=== PATIENT | male | born 1970 | race American Indian/Alaskan Native ===

== ENCOUNTER 2018-12-31 11:49 | Inpatient (IN) | payer OTHER, SELFPAY ==
[2018-12-31] MEDS ORDERED: NACL 0.9% 1000 ML 1,000 ML IV ONE ×2 (12:37→14:18)
[2018-12-31 12:47] LABS: Basophils % (Auto) 0.5 % (0.0-1.8); Eosinophils % (Auto) 0.1 % (0.0-4.3); Hematocrit 49.7 % (35.5-45.6); Hemoglobin 16.6 gm/dl (11.8-15.2); Lymphocytes # (Auto) 0.7 K/mm3 (1.2-5.4); Lymphocytes % (Auto) 6.9 % (13.4-35.0); Mean Corpuscular HGB Conc 34 % (32-34); Mean Corpuscular Volume 86 fl (84-94); Monocytes # (Auto) 0.6 K/mm3 (0.0-0.8); Monocytes % (Auto) 6.2 % (0.0-7.3); Platelet Count 169 K/mm3 (140-440); Red Blood Count 5.81 M/mm3 (3.65-5.03); Red Cell Distribution Width 13.5 % (13.2-15.2)
[2018-12-31 13:00] LABS: Alanine Aminotransferase 27 units/L (7-56); Albumin 4.2 g/dL (3.9-5); BUN/Creatinine Ratio 8; Blood Urea Nitrogen 8 mg/dL (9-20); Calcium 9.4 mg/dL (8.4-10.2); Hemolysis Index 61
--- NOTE | 2018-12-31 13:51 | Emergency Department Report ---
ED General Adult HPI - General Chief complaint: Abdominal Pain Stated complaint: ABD PAIN Time Seen by Provider: 12/31/18 12:08 Source: patient Mode of arrival: Stretcher Limitations: No Limitations - History of Present Illness Initial comments: Patient presents to the emergency department with a chief complaint of abdominal pain that started yesterday after taking the liver complaints. Patient describes the pain as crampy in nature and a 10 out of 10 in nature. Patient denies any diarrhea, nausea, vomiting. -: Sudden Location: abdomen Radiation: non-radiation Severity scale (0 -10): 10 Quality: other (cramping) Consistency: constant Improves with: none Worsens with: none Associated Symptoms: denies other symptoms Treatments Prior to Arrival: none - Related Data Allergies Allergy/AdvReac Type Severity Reaction Status Date / Time No Known Allergies Allergy Unverified 12/31/18 12:01 ED Review of Systems ROS: Stated complaint: ABD PAIN Other details as noted in HPI Comment: All other systems reviewed and negative Constitutional: denies: chills, fever Eyes: denies: eye pain, eye discharge, vision change ENT: denies: ear pain, throat pain Respiratory: denies: cough, shortness of breath, wheezing Cardiovascular: denies: chest pain, palpitations Endocrine: no symptoms reported Gastrointestinal: abdominal pain. denies: nausea, diarrhea Genitourinary: denies: urgency, dysuria Musculoskeletal: denies: back pain, joint swelling, arthralgia Skin: denies: rash, lesions Neurological: denies: headache, weakness, paresthesias Psychiatric: denies: anxiety, depression Hematological/Lymphatic: denies: easy bleeding, easy bruising ED Past Medical Hx - Past Medical History Previous Medical History?: No - Surgical History Past Surgical History?: No - Social History Smoking Status: Unknown if ever smoked Substance Use Type: None ED Physical Exam - General Limitations: No Limitations General appearance: alert, in no apparent distress - Head Head exam: Present: atraumatic, normocephalic - Eye Eye exam: Present: normal appearance, PERRL, EOMI - ENT ENT exam: Present: mucous membranes moist - Neck Neck exam: Present: normal inspection - Respiratory Respiratory exam: Present: normal lung sounds bilaterally. Absent: respiratory distress - Cardiovascular Cardiovascular Exam: Present: regular rate, normal rhythm. Absent: systolic murmur, diastolic murmur, rubs, gallop - GI/Abdominal GI/Abdominal exam: Present: soft, tenderness (diffusely tender to palpation but is more exquisitely tender in the right lower quadrant), normal bowel sounds. Absent: distended - Rectal Rectal exam: Present: deferred - Extremities Exam Extremities exam: Present: normal inspection - Back Exam Back exam: Present: normal inspection - Neurological Exam Neurological exam: Present: alert, oriented X3, CN II-XII intact. Absent: motor sensory deficit - Psychiatric Psychiatric exam: Present: normal affect, normal mood - Skin Skin exam: Present: warm, dry, intact, normal color. Absent: rash ED Course Vital Signs 12/31/18 12/31/18 11:57 12:10 Temperature 97.6 F Pulse Rate 76 Respiratory 18 18 Rate Blood Pressure 130/61 O2 Sat by Pulse 98 Oximetry ED Medical Decision Making - Lab Data Result diagrams: 12/31/18 12:23 12/31/18 12:23 Lab Results 12/31/18 12/31/18 12/31/18 Range/Units 12:23 12:23 12:23 WBC 10.2 (4.5-11.0) K/mm3 RBC 5.81 H (3.65-5.03) M/mm3 Hgb 16.6 H (11.8-15.2) gm/dl Hct 49.7 H (35.5-45.6) % MCV 86 (84-94) fl MCH 29 (28-32) pg MCHC 34 (32-34) % RDW 13.5 (13.2-15.2) % Plt Count 169 (140-440) K/mm3 Lymph % (Auto) 6.9 L (13.4-35.0) % [place] % (Auto) 6.2 (0.0-7.3) % Eos % (Auto) 0.1 (0.0-4.3) % Baso % (Auto) 0.5 (0.0-1.8) % Lymph # 0.7 L (1.2-5.4) K/mm3 [place] # 0.6 (0.0-0.8) K/mm3 Eos # 0.0 (0.0-0.4) K/mm3 Baso # 0.0 (0.0-0.1) K/mm3 Seg Neutrophils % 86.3 H (40.0-70.0) % Seg Neutrophils # 8.8 H (1.8-7.7) K/mm3 Sodium 137 (137-145) mmol/L Potassium 4.1 (3.6-5.0) mmol/L Chloride 98.3 (98-107) mmol/L Carbon Dioxide 22 (22-30) mmol/L Anion Gap 21 mmol/L BUN 8 L (9-20) mg/dL Creatinine 1.0 (0.8-1.5) mg/dL Estimated GFR > 60 ml/min BUN/Creatinine Ratio 8 % Glucose 149 H (75-100) mg/dL Calcium 9.4 (8.4-10.2) mg/dL Total Bilirubin 1.50 H (0.1-1.2) mg/dL AST 23 (5-40) units/L ALT 27 (7-56) units/L Alkaline Phosphatase 57 (35-129) units/L Total Protein 7.3 (6.3-8.2) g/dL Albumin 4.2 (3.9-5) g/dL Albumin/Globulin Ratio 1.4 % Lipase 10 L (13-60) units/L - Radiology Data Radiology results: report reviewed - Medical Decision Making Patient declined pain medication multiple times during his ED stay. Discussed results with the patient At 2:47 PM the patient requested something for pain Critical care attestation.: If time is entered above; I have spent that time in minutes in the direct care of this critically ill patient, excluding procedure time. ED Disposition Clinical Impression: Appendicitis Disposition: DC-09 OP ADMIT IP TO THIS HOSP Is pt being admited?: Yes Does the pt Need Aspirin: No Condition: Fair Referrals: LISA NIEVES MD [Primary Care Provider] - 3-5 Days
--- NOTE | 2018-12-31 14:14 | Cat Scan Report ---
EXAM: CT ABDOMEN PELVIS WO CON HISTORY: abdominal pain TECHNIQUE: Spiral axial CT images are obtained through the abdomen and pelvis without the administrat ion of intravenous contrast. Additional coronal and sagittal reformatted images are reconstructed. COMPARISON: None available. FINDINGS: GASTROINTESTINAL TRACT: Evidence for acute appendicitis, marked by a dilated (1.3 cm diameter), thick walled, fluid-filled appendix with extensive periappendiceal streaky inflammatory change and an appro ximately 6.5 mm intraluminal appendicoliths. Axial images 118-149; sagittal images 107-141; coronal i mages 78-91). There are up to 2.9 cm dilated fluid-filled small bowel loops within the central and lo wer abdomen and pelvis, with relatively collapsed and thickened (9.7 mm) small bowel loops in the rig ht lower quadrant/pelvis; DDX includes enteritis with focal ileus and partial distal SBO secondary to distal ileal infectious enteritis and thickening. No drainable fluid collection, free air, or absce ss formation seen. There are no stigmata of colitis or diverticulitis. GENITOURINARY SYSTEM: The kidneys are unremarkable. There is no ureteral calculus or stigmata of obst ructive uropathy. The urinary bladder is grossly unremarkable for a non-dedicated exam. CT ABDOMEN: The liver, spleen, pancreas, adrenal glands, gallbladder, aorta, and inferior vena cava a re within normal limits for a noncontrast CT scan. There is no intra-abdominal or retroperitoneal ly mphadenopathy, free fluid, or free air seen. No abdominal herniation is noted. CT PELVIS: The visualized bony structures are within normal limits. No pelvic sidewall or inguinal l ymphadenopathy is seen. No inguinal herniation is noted. No free fluid or free air is seen. LUNG BASES: The lung bases are clear. IMPRESSION: 1. Evidence for acute appendicitis, marked by a dilated (1.3 cm diameter), thickwalled, fluid-filled appendix with extensive periappendiceal streaky inflammatory change and an approximately 6.5 mm intr aluminal appendicoliths. Axial images 118-149; sagittal images 107-141; coronal images 78-91). 2. Up to 2.9 cm dilated fluid-filled small bowel loops within the central and lower abdomen and pelv is, with relatively collapsed and thickened (9.7 mm) small bowel loops in the right lower quadrant/pe lvis; DDX includes enteritis with focal ileus and partial distal SBO secondary to distal ileal infect ious enteritis and thickening. 3. No drainable fluid collection, free air, or abscess formation seen. 4. No evidence for colitis or diverticulitis seen. 5. No evidence for renal stone disease or obstructive uropathy. This document is electronically signed by Hussein Aems MD., December 31 2018 03:12:14 PM ET
[2018-12-31] MEDS ORDERED: MORPHINE IV ONE (14:48)
[2018-12-31] MEDS ORDERED: ZOFRAN IV ONE (14:48)
[2018-12-31] MEDS ORDERED: ZOSYN/NS 4.5GM/100ML 4.5 GM/100 ML VIAL IV ONE (15:12)
--- NOTE | 2018-12-31 15:44 | History and Physical Report ---
History of Present Illness Chief complaint: My stomach hurts History of present illness: 48 YO Male with no PMH presents to ED for evaluation. Pt states that he has experienced abdominal pain over the past 1 day with worsening symptoms over the past 8 hours. Pt states that pain in 10/10, constant, nonradiating, localized to the right side of his abdomen, without exacerbating or alleviating factors, not associated with meals. Pt reports that symptoms began after taking a "liver cleansing drink". EMS notified, and upon arrival the patietn was found to be in distress. Patient transported to [facility]. Pt seen and evaluated in ED and found to have abdominal pain. Pt underwent CT Abdomen/Pelvis which revealted Acute Appe ndicitis. Pt admitted to Surgical floor, and initiated on IV antibiotic therpay. Surgery team consulted in ED. Pt denies fever, chills, CP, Palpitations, NVD, skin rash, productive cough, or recent ill contacts. No prior admission for review. No medication listed for reconciliation at time of admission. Past History Past Medical History: No medical history, other (reviewed) Past Surgical History: No surgical history, Other (reviewed) Social history: single. denies: smoking, alcohol abuse, prescription drug abuse Family history: no significant family history (reviewed) Medications and Allergies Allergies Allergy/AdvReac Type Severity Reaction Status Date / Time No Known Allergies Allergy Unverified 12/31/18 12:01 Home Medications Medication Instructions Recorded Confirmed Last Taken Type No Known Home Medications [No 12/31/18 12/31/18 Unknown History Reported Home Medications] Review of Systems Constitutional: no weight loss, no weight gain, no fever, no chills Ears, nose, mouth and throat: no ear pain, no ear discharge, no tinnitis, no decreased hearing, no nose pain, no nasal congestion Cardiovascular: no chest pain, no orthopnea, no palpitations, no rapid/irregular heart beat, no shortness of breath Respiratory: no cough, no cough with sputum, no excessive sputum, no hemoptysis, no shortness of breath, no dyspnea on exertion Gastrointestinal: abdominal pain, no diarrhea, no constipation, no change in bowel habits, no hematemesis, no BRBPR, no melena, no loss of appetite Genitourinary Male: no hematuria, no flank pain, no discharge, no urinary frequency, no urinary hesitancy, no nocturia Rectal: no pain, no incontinence, no bleeding Musculoskeletal: no neck stiffness, no neck pain, no shooting arm pain, no arm numbness/tingling Integumentary: no rash, no pruritis, no redness, no wounds Neurological: no head injury, no transient paralysis, no paralysis, no weakness, no parathesias, no numbness, no tingling, no seizures, no syncope Psychiatric: no anxiety, no change in sleep habits, no sleep disturbances, no insomnia, no change in appetite, no change in libido, no suicidal ideation Endocrine: no cold intolerance, no heat intolerance, no polyphagia, no excessive thirst, no polydipsia, no polyuria, no nocturia, no excessive sweating Hematologic/Lymphatic: no easy bruising, no easy bleeding Allergic/Immunologic: no urticaria, no allergic rhinitis, no wheezing Exam - Constitutional Vitals: Temp Pulse Resp BP Pulse Ox 97.6 F 76 18 133/89 97 12/31/18 11:57 12/31/18 11:57 12/31/18 12:10 12/31/18 15:31 12/31/18 15:31 General appearance: Present: mild distress - EENT Eyes: Present: PERRL ENT: hearing intact, clear oral mucosa - Neck Neck: Present: supple, normal ROM - Respiratory Respiratory effort: normal Respiratory: bilateral: CTA - Cardiovascular Heart Sounds: Present: S1 & S2. Absent: rub, click - Extremities Extremities: pulses symmetrical, No edema Peripheral Pulses: within normal limits - Abdominal General gastrointestinal: Present: soft, tender, non-distended, normal bowel sounds. Absent: hepatomegaly, splenomegaly, mass Localized gastrointestinal: tender: RLQ Male genitourinary: Present: normal - Integumentary Integumentary: Present: clear, warm, dry - Musculoskeletal Musculoskeletal: gait normal, strength equal bilaterally - Psychiatric Psychiatric: appropriate mood/affect, intact judgment & insight - Neurologic Neurologic: CNII-XII intact, moves all extremities Results - Labs CBC & Chem 7: 12/31/18 12:23 12/31/18 12:23 Labs: Abnormal lab results 12/31/18 12/31/18 12/31/18 Range/Units 12:23 12:23 12:23 RBC 5.81 H (3.65-5.03) M/mm3 Hgb 16.6 H (11.8-15.2) gm/dl Hct 49.7 H (35.5-45.6) % Lymph % (Auto) 6.9 L (13.4-35.0) % Lymph # 0.7 L (1.2-5.4) K/mm3 Seg Neutrophils % 86.3 H (40.0-70.0) % Seg Neutrophils # 8.8 H (1.8-7.7) K/mm3 BUN 8 L (9-20) mg/dL Glucose 149 H (75-100) mg/dL Total Bilirubin 1.50 H (0.1-1.2) mg/dL Lipase 10 L (13-60) units/L Assessment and Plan - Patient Problems (1) Appendicitis Current Visit: Yes Status: Acute Qualifiers: Appendicitis type: acute appendicitis Plan to address problem: Admit to surgical floor, IV antibiotic therapy, serial abdominal exam, CT Abdomen/Pelvis, IVF resuscitation therapy, pain control, bowel rest, Surgery consulted in ED. (2) DVT prophylaxis Current Visit: Yes Status: Acute Plan to address problem: SCD to BLE while in bed, Prophylactic lovenox
[2018-12-31] MEDS ORDERED: SODIUM CHLORIDE FLUSH SYRINGE 10 ML IV PRN (15:45)
[2018-12-31] MEDS ORDERED: PROVENTIL IH PRN (15:45)
[2018-12-31] MEDS ORDERED: ZOFRAN IV PRN (15:45)
[2018-12-31] MEDS ORDERED: TYLENOL PO PRN (15:45)
[2018-12-31] MEDS ORDERED: MORPHINE IV PRN (15:45)
[2018-12-31 16:21] LABS: Bilirubin,Urine NEG (Negative); Blood,Urine NEG (Negative); Color,Urine Yellow (Yellow); Mucus,Urine 3+ /HPF
--- NOTE | 2018-12-31 17:00 | Event Note ---
Date: 12/31/[address] Michael. Reviewed chart and CT. Pain minimal at this time. Will admit to hospitalist for resuscitation. Added to tomorrow's OR schedule.
[2018-12-31] MEDS: NACL 0.9% 1000 ML 1,000 ML IV SCH (17:21)
[2018-12-31] MEDS: ZOSYN/NS 4.5GM/100ML 4.5 GM/100 ML VIAL IV SCH (21:58)
[2018-12-31] MEDS: SODIUM CHLORIDE FLUSH SYRINGE 10 ML IV SCH (22:01)
[2018-12-31] MEDS: LOVENOX SUB-Q SCH (22:01)
[2019-01-01] MEDS: NACL 0.9% 1000 ML 1,000 ML IV SCH (00:04)
[2019-01-01] MEDS: ZOSYN/NS 4.5GM/100ML 4.5 GM/100 ML VIAL IV SCH ×3 (06:03→21:23)
[2019-01-01] MEDS ORDERED: XYLOCAINE MPF 2% ONE (07:09)
[2019-01-01] MEDS ORDERED: DILAUDID ONE (07:09)
[2019-01-01] MEDS ORDERED: ZEMURON IV ONE (07:09)
[2019-01-01] MEDS ORDERED: DIPRIVAN 10 MG/ML IV ONE (07:10)
[2019-01-01] MEDS ORDERED: ZOFRAN IV PRN (07:16)
[2019-01-01] MEDS ORDERED: SUBLIMAZE IV PRN (07:16)
--- NOTE | 2019-01-01 07:38 | Anesthesia Day of Surgery ---
Anesthesia Day of Surgery - Day of Surgery Patient Examined: Yes Patient H&P Reviewed: Yes Patient is NPO: Yes
--- NOTE | 2019-01-01 07:42 | Anesthesia Consultation ---
Anesthesia Consult and Med Hx Date of service: 01/01/19 - Airway Anesthetic Teeth Evaluation: Good ROM Head & Neck: Adequate Mental/Hyoid Distance: Adequate Mallampati Class: Class III Intubation Access Assessment: Probably Good - Pre-Operative Health Status ASA Pre-Surgery Classification: ASA1, Emergency Proposed Anesthetic Plan: General - Pulmonary Hx Asthma: No Hx Pneumonia: No
[2019-01-01] MEDS ORDERED: XYLOCAINE 1% 20 mL ONE (07:44)
[2019-01-01] MEDS ORDERED: MARCAINE 0.25% INFILTRATI ONE ×2 (07:44→08:51)
[2019-01-01] MEDS ORDERED: NEURONTIN PO NR (08:00)
[2019-01-01] MEDS ORDERED: VERSED IV NR (08:00)
[2019-01-01] MEDS: LACTATED RINGERS 1,000 ML IV SCH ×2 (08:00→16:49)
[2019-01-01] MEDS ORDERED: TYLENOL PO NR (08:00)
[2019-01-01] MEDS ORDERED: TRANSDERM-SCOP TD NR (08:00)
[2019-01-01] MEDS: MORPHINE IV NR ×2 (08:01→08:22)
--- NOTE | 2019-01-01 08:11 | Consultation ---
History of Present Illness Consult date: 01/01/19 Reason for consult: abdominal pain Requesting physician: IVA CONLEY Chief complaint: abdominal pain - History of present illness History of present illness: 48yo M with acute onset of abdominal pain two night ago. Reports that it began in the epigastric area and then spread to the center. Entire abdomen hurts now. Last BM yesterday. +nausea and chills. No fevers. Pain was less last night but is increasing now. Never has this before. 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 denies: smoking, alcohol abuse, prescription drug abuse Family history: no significant family history (reviewed) Medications and Allergies Allergies Allergy/AdvReac Type Severity Reaction Status Date / Time No Known Allergies Allergy Unverified 12/31/18 12:01 Home Medications Medication Instructions Recorded Confirmed Last Taken Type No Known Home Medications [No 12/31/18 12/31/18 Unknown History Reported Home Medications] Active Meds: Active Medications Acetaminophen (Tylenol) 650 mg PO Q4H PRN PRN Reason: Pain MILD(1-3)/Fever >100.5/BLANCAS Acetaminophen (Tylenol) 650 mg PO PREOP NR Stop: 01/01/19 20:00 Albuterol (Proventil) 2.5 mg IH Q4HRT PRN PRN Reason: Shortness Of Breath Celecoxib (Celebrex) 200 mg PO PREOP NR Stop: 01/01/19 20:00 Enoxaparin Sodium (Lovenox) 40 mg SUB-Q QDAY@2200 CEDRICK Last Admin: 12/31/18 22:01 Dose: 40 mg Documented by: Fentanyl (Sublimaze) 50 mcg IV Q5MIN PRN PRN Reason: Pain , Severe (7-10) Stop: 01/01/19 20:00 Gabapentin (Neurontin) 300 mg PO PREOP NR Stop: 01/01/19 20:00 Piperacillin Sod/Tazobactam Sod (Zosyn/Ns 4.5gm/100ml) 4.5 gm in 100 mls @ 200 mls/hr IV Q8HR CEDRICK; Protocol Last Admin: 01/01/19 06:03 Dose: 200 mls/hr Documented by: Sodium Chloride (Nacl 0.9% 1000 Ml) 1,000 mls @ 150 mls/hr IV DIRECT CEDRICK Last Admin: 01/01/19 00:04 Dose: 150 mls/hr Documented by: Lactated Ringer's (Lactated Ringers) 1,000 mls @ 125 mls/hr IV DIRECT CEDRICK Midazolam HCl (Versed) 2 mg IV PREOP NR Stop: 01/01/19 23:59 Morphine Sulfate (Morphine) 2 mg IV Q4H PRN PRN Reason: Pain, Moderate (4-6) Stop: 01/01/19 13:00 Morphine Sulfate (Morphine) 2 mg IV ONCE NR Stop: 01/01/19 10:00 Ondansetron HCl (Zofran) 4 mg IV Q8H PRN PRN Reason: Nausea And Vomiting Ondansetron HCl (Zofran) 4 mg IV ONCE PRN PRN Reason: Nausea And Vomiting Stop: 01/01/19 20:00 Scopolamine (Transderm-Scop) 1 each TD PREOP NR Stop: 01/01/19 20:00 Sodium Chloride (Sodium Chloride Flush Syringe 10 Ml) 10 ml IV BID CEDRICK Last Admin: 12/31/18 22:01 Dose: 10 ml Documented by: Sodium Chloride (Sodium Chloride Flush Syringe 10 Ml) 10 ml IV PRN PRN PRN Reason: LINE FLUSH Review of Systems - Constitutional chills, no fever, no chronic pain - Cardiovascular no chest pain, no lightheadedness, no shortness of breath - Respiratory no cough, no dyspnea on exertion - Gastrointestinal abdominal pain, nausea, dyspepsia/bloating, no vomiting, no hematemesis, no coffee ground emesis, no BRBPR, no melena, no hematochezia - Genitourinary no dysuria - Muskuloskeletal no low back pain Exam Vital Signs Temp Pulse Resp BP Pulse Ox 97.6 F 76 18 130/61 98 12/31/18 11:57 12/31/18 11:57 12/31/18 11:57 12/31/18 11:57 12/31/18 11:57 - General physical appearance Positive: no distress, no pain, other (does not appear ill) - Eyes Positive: normal occular movement. Negative: pale, icteric - Respiratory Positive: normal expansion, normal respiratory effort, clear to auscultation - Cardiovascular Rhythm: regular - Abdomen Abdomen: Present: soft, tender (mild throughtout - moderate in RLQ), bowel sounds hypoactive (but present), distended. Absent: masses, rebound, guarding, rigid, wound, surgical scars - Integumentary no rash, no growths, no abnormal pigmentation - Neurologic Neurologic: alert and oriented to time, place and person, motor strength and sensation are grossly intact - Psychiatric Psychiatric: appropriate mood/affect, intact judgment & insight, cooperative Results - Labs 12/31/18 12:23 12/31/18 12:23 Abnormal lab results 12/31/18 12/31/18 12/31/18 Range/Units 12:23 12:23 12:23 RBC 5.81 H (3.65-5.03) M/mm3 Hgb 16.6 H (11.8-15.2) gm/dl Hct 49.7 H (35.5-45.6) % Lymph % (Auto) 6.9 L (13.4-35.0) % Lymph # 0.7 L (1.2-5.4) K/mm3 Seg Neutrophils % 86.3 H (40.0-70.0) % Seg Neutrophils # 8.8 H (1.8-7.7) K/mm3 BUN 8 L (9-20) mg/dL Glucose 149 H (75-100) mg/dL Total Bilirubin 1.50 H (0.1-1.2) mg/dL Lipase 10 L (13-60) units/L Diabetes panel 12/31/18 Range/Units 12:23 Sodium 137 (137-145) mmol/L Potassium 4.1 (3.6-5.0) mmol/L Chloride 98.3 (98-107) mmol/L Carbon Dioxide 22 (22-30) mmol/L BUN 8 L (9-20) mg/dL Creatinine 1.0 (0.8-1.5) mg/dL Glucose 149 H (75-100) mg/dL Calcium 9.4 (8.4-10.2) mg/dL AST 23 (5-40) units/L ALT 27 (7-56) units/L Alkaline Phosphatase 57 (35-129) units/L Total Protein 7.3 (6.3-8.2) g/dL Albumin 4.2 (3.9-5) g/dL Calcium panel 12/31/18 Range/Units 12:23 Calcium 9.4 (8.4-10.2) mg/dL Albumin 4.2 (3.9-5) g/dL Pituitary panel 12/31/18 Range/Units 12:23 Sodium 137 (137-145) mmol/L Potassium 4.1 (3.6-5.0) mmol/L Chloride 98.3 (98-107) mmol/L Carbon Dioxide 22 (22-30) mmol/L BUN 8 L (9-20) mg/dL Creatinine 1.0 (0.8-1.5) mg/dL Glucose 149 H (75-100) mg/dL Calcium 9.4 (8.4-10.2) mg/dL Adrenal panel 12/31/18 Range/Units 12:23 Sodium 137 (137-145) mmol/L Potassium 4.1 (3.6-5.0) mmol/L Chloride 98.3 (98-107) mmol/L Carbon Dioxide 22 (22-30) mmol/L BUN 8 L (9-20) mg/dL Creatinine 1.0 (0.8-1.5) mg/dL Glucose 149 H (75-100) mg/dL Calcium 9.4 (8.4-10.2) mg/dL Total Bilirubin 1.50 H (0.1-1.2) mg/dL AST 23 (5-40) units/L ALT 27 (7-56) units/L Alkaline Phosphatase 57 (35-129) units/L Total Protein 7.3 (6.3-8.2) g/dL Albumin 4.2 (3.9-5) g/dL - Imaging CT scan - abdomen: report reviewed, image reviewed CT scan - pelvis: report reviewed, image reviewed Assessment and Plan - Patient Problems (1) Appendicitis Current Visit: Yes Status: Acute Qualifiers: Appendicitis type: acute appendicitis Acute appendicitis type: with generalized peritonitis Appendicitis gangrene presence: unspecified whether gangrene present Appendicitis perforation presence: unspecified whether perforation present Appendicitis abscess presence: unspecified whether abscess present Qualified Code(s): K35.20 - Acute appendicitis with generalized peritonitis, without abscess Plan to address problem: Pt stable. Appears to have acute appendicitis, but Ct limited by no contrast. Will proceed with dx lap and probable appendectomy. Pt understands that we may have to open if there is some other problem or the appendicitis is very severe. Procedure, risks, benefits explained. all questions answered. Consent obtained. To OR today. Time=30min
[2019-01-01] MEDS ORDERED: XYLOCAINE 1% 20 mL INFILTRATI ONE (08:51)
[2019-01-01] MEDS ORDERED: NACL 0.9% IR ONE ×2 (08:53)
[2019-01-01] MEDS ORDERED: WATER FOR IRRIG STERILE IR ONE (08:54)
[2019-01-01] MEDS ORDERED: QUELICIN ONE (08:54)
[2019-01-01] MEDS ORDERED: DECADRON ONE (08:54)
[2019-01-01] MEDS: SODIUM CHLORIDE FLUSH SYRINGE 10 ML IV SCH (10:00)
[2019-01-01] MEDS ORDERED: ZOFRAN ONE (10:28)
[2019-01-01] MEDS ORDERED: TORADOL ONE (10:28)
--- NOTE | 2019-01-01 10:43 | Post Operative Note ---
Date of procedure: 01/01/19 (dictation:[id number]) Pre-op diagnosis: acute appendicitis Post-op diagnosis: other (acute perforated appendicitis with generalized peritonitis) Findings: enlarged, thickened, appendix with necrotic distal portion. purulent fluid in the abdomen. Procedure: Lap appy IVF 2L EBL min UOP 200cc (concentrated) Anesthesia: GETA Surgeon: CHELA HARRIS Estimated blood loss: minimal Pathology: list (appendix and mesoappendix) Specimen disposition: to lab Condition: stable Disposition: PACU
--- NOTE | 2019-01-01 11:39 | Progress Note ---
Assessment and Plan Assessment and plan: --Acute appendicitis; lap appendectomy Continue postop care, IV fluids, IV antibiotics Supportive care, surgery following --DVT prophylaxis; on Lovenox Hold Lovenox. Postop State History Interval history: Patient seen and examined medical records reviewed Admitted with acute appendicitis Schedule follow-up lap appendectomy Vital signs noted Hospitalist Physical - Constitutional Vitals: Temp Pulse Resp BP Pulse Ox 98.4 F 86 14 114/78 94 01/01/19 10:55 01/01/19 11:15 01/01/19 11:15 01/01/19 11:15 01/01/19 11:15 General appearance: Present: no acute distress, well-nourished - EENT Eyes: Present: PERRL, EOM intact - Neck Neck: Present: supple, normal ROM - Respiratory Respiratory effort: normal Respiratory: bilateral: diminished, negative: rales, rhonchi, wheezing - Cardiovascular Rhythm: regular Heart Sounds: Present: S1 & S2 - Extremities Extremities: no ischemia - Abdominal General gastrointestinal: soft, tender, non-distended, normal bowel sounds - Integumentary Integumentary: Present: clear, warm - Psychiatric Psychiatric: appropriate mood/affect, cooperative - Neurologic Neurologic: CNII-XII intact, moves all extremities Results - Labs CBC & Chem 7: 01/01/19 12:19 01/02/19 04:14 Labs: Laboratory Last Values WBC 10.2 K/mm3 (4.5-11.0) 12/31/18 12:23 RBC 5.81 M/mm3 (3.65-5.03) H 12/31/18 12:23 Hgb 16.6 gm/dl (11.8-15.2) H 12/31/18 12:23 Hct 49.7 % (35.5-45.6) H 12/31/18 12:23 MCV 86 fl (84-94) 12/31/18 12:23 MCH 29 pg (28-32) 12/31/18 12:23 MCHC 34 % (32-34) 12/31/18 12:23 RDW 13.5 % (13.2-15.2) 12/31/18 12:23 Plt Count 169 K/mm3 (140-440) 12/31/18 12:23 Lymph % (Auto) 6.9 % (13.4-35.0) L 12/31/18 12:23 [place] % (Auto) 6.2 % (0.0-7.3) 12/31/18 12:23 Eos % (Auto) 0.1 % (0.0-4.3) 12/31/18 12:23 Baso % (Auto) 0.5 % (0.0-1.8) 12/31/18 12:23 Lymph # 0.7 K/mm3 (1.2-5.4) L 12/31/18 12:23 [place] # 0.6 K/mm3 (0.0-0.8) 12/31/18 12:23 Eos # 0.0 K/mm3 (0.0-0.4) 12/31/18 12:23 Baso # 0.0 K/mm3 (0.0-0.1) 12/31/18 12:23 Seg Neutrophils % 86.3 % (40.0-70.0) H 12/31/18 12:23 Seg Neutrophils # 8.8 K/mm3 (1.8-7.7) H 12/31/18 12:23 Sodium 137 mmol/L (137-145) 12/31/18 12:23 Potassium 4.1 mmol/L (3.6-5.0) 12/31/18 12:23 Chloride 98.3 mmol/L (98-107) 12/31/18 12:23 Carbon Dioxide 22 mmol/L (22-30) 12/31/18 12:23 21 mmol/L 12/31/18 12:23 BUN 8 mg/dL (9-20) L 12/31/18 12:23 1.0 mg/dL (0.8-1.5) 12/31/18 12:23 Estimated GFR > 60 ml/min 12/31/18 12:23 8 % 12/31/18 12:23 Glucose 149 mg/dL (75-100) H 12/31/18 12:23 Calcium 9.4 mg/dL (8.4-10.2) 12/31/18 12:23 1.50 mg/dL (0.1-1.2) H 12/31/18 12:23 AST 23 units/L (5-40) 12/31/18 12:23 ALT 27 units/L (7-56) 12/31/18 12:23 57 units/L (35-129) 12/31/18 12:23 7.3 g/dL (6.3-8.2) 12/31/18 12:23 4.2 g/dL (3.9-5) 12/31/18 12:23 1.4 % 12/31/18 12:23 10 units/L (13-60) L 12/31/18 12:23 Yellow (Yellow) 12/31/18 15:46 Clear (Clear) 12/31/18 15:46 6.0 (5.0-7.0) 12/31/18 15:46 Ur Specific [place] 1.021 (1.003-1.030) 12/31/18 15:46 30 mg/dl mg/dL (Negative) 12/31/18 15:46 Neg mg/dL (Negative) 12/31/18 15:46 Tr mg/dL (Negative) 12/31/18 15:46 Neg (Negative) 12/31/18 15:46 Neg (Negative) 12/31/18 15:46 Neg (Negative) 12/31/18 15:46 2.0 mg/dL (<2.0) 12/31/18 15:46 Ur Leukocyte Esterase Neg (Negative) 12/31/18 15:46 1.0 /HPF (0.0-6.0) 12/31/18 15:46 3.0 /HPF (0.0-6.0) 12/31/18 15:46 U Epithel Cells (Auto) < 1.0 /HPF (0-13.0) 12/31/18 15:46 3+ /HPF 12/31/18 15:46 Active Medications - Current Medications Current Medications: Generic Name Dose Route Start Last Admin Trade Name Freq PRN Reason Stop Dose Admin Acetaminophen 650 mg 12/31/18 15:45 Tylenol PO Q4H PRN Pain MILD(1-3)/Fever >100.5/BLANCAS Acetaminophen 650 mg 01/01/19 08:00 01/01/19 08:24 Tylenol PO 01/01/19 20:00 650 mg PREOP NR Administration Acetaminophen/Hydrocodone Bitart 2 each 01/01/19 10:40 [place] 5/325 PO Q6H PRN Pain, Moderate (4-6) Albuterol 2.5 mg 12/31/18 15:45 Proventil IH Q4HRT PRN Shortness Of Breath Celecoxib 200 mg 01/01/19 08:00 01/01/19 08:21 Celebrex PO 01/01/19 20:00 200 mg PREOP NR Administration Enoxaparin Sodium 40 mg 12/31/18 22:00 12/31/18 22:01 Lovenox SUB-Q 40 mg QDAY@2200 CEDRICK Administration Fentanyl 50 mcg 01/01/19 07:16 Sublimaze IV 01/01/19 20:00 Q5MIN PRN Pain , Severe (7-10) Gabapentin 300 mg 01/01/19 08:00 01/01/19 07:50 Neurontin PO 01/01/19 20:00 300 mg PREOP NR Administration Piperacillin Sod/Tazobactam Sod 4.5 gm in 100 mls @ 200 mls/hr 12/31/18 22:00 01/01/19 06:03 Zosyn/Ns 4.5gm/100ml IV 200 mls/hr Q8HR CEDRICK Administration Protocol Sodium Chloride 1,000 mls @ 150 mls/hr 12/31/18 17:00 01/01/19 00:04 Nacl 0.9% 1000 Ml IV 150 mls/hr DIRECT CEDRICK Administration Lactated Ringer's 1,000 mls @ 125 mls/hr 01/01/19 08:00 01/01/19 08:00 Lactated Ringers IV 125 mls/hr DIRECT CEDRICK Administration Midazolam HCl 2 mg 01/01/19 08:00 01/01/19 08:08 Versed IV 01/01/19 23:59 2 mg PREOP NR Administration Morphine Sulfate 2 mg 12/31/18 15:45 Morphine IV 01/01/19 13:00 Q4H PRN Pain, Moderate (4-6) Ondansetron HCl 4 mg 12/31/18 15:45 01/01/19 08:08 Zofran IV 4 mg Q8H PRN Administration Nausea And Vomiting Ondansetron HCl 4 mg 01/01/19 07:16 Zofran IV 01/01/19 20:00 ONCE PRN Nausea And Vomiting Scopolamine 1 each 01/01/19 08:00 01/01/19 07:55 Transderm-Scop TD 01/01/19 20:00 1 each PREOP NR Administration Sodium Chloride 10 ml 12/31/18 22:00 12/31/18 22:01 Sodium Chloride Flush Syringe 10 Ml IV 10 ml BID CEDRICK Administration Sodium Chloride 10 ml 12/31/18 15:45 Sodium Chloride Flush Syringe 10 Ml IV PRN PRN LINE FLUSH
[2019-01-01 13:16] LABS: Basophils % (Auto) 0.3 % (0.0-1.8); Hematocrit 42.6 % (35.5-45.6); Hemoglobin 14.2 gm/dl (11.8-15.2); Lymphocytes # (Auto) 0.6 K/mm3 (1.2-5.4); Lymphocytes % (Auto) 6.9 % (13.4-35.0); Mean Corpuscular HGB Conc 34 % (32-34); Mean Corpuscular Volume 86 fl (84-94); Monocytes # (Auto) 0.3 K/mm3 (0.0-0.8); Monocytes % (Auto) 2.9 % (0.0-7.3); Platelet Count 134 K/mm3 (140-440); Red Blood Count 4.97 M/mm3 (3.65-5.03); Red Cell Distribution Width 13.7 % (13.2-15.2)
[2019-01-01 13:53] LABS: Alanine Aminotransferase 30 units/L (7-56); Albumin 3.1 g/dL (3.9-5); BUN/Creatinine Ratio 9; Blood Urea Nitrogen 12 mg/dL (9-20); Calcium 8.4 mg/dL (8.4-10.2); Hemolysis Index 9
--- NOTE | 2019-01-01 17:42 | Event Note ---
Date: 01/01/19 Routine post-op check. Pt reports that he is feeling better. Looks better. Clears for tonight. If doing well, will advance diet tomorrow. Extensive contamination from partially gangrenous appendix. Recommend extra day of IV Abx and then send home on PO abx if labs and vitals are normal. Please call with questions.
[2019-01-01] MEDS: NORCO 5/325 PO PRN (20:04)
[2019-01-01] MEDS: LOVENOX SUB-Q SCH (21:23)
--- NOTE | 2019-01-02 01:33 | Operative Report ---
PREOPERATIVE DIAGNOSIS: Acute appendicitis. POSTOPERATIVE DIAGNOSIS: Acute perforated appendicitis with generalized peritonitis. PROCEDURE: Laparoscopic appendectomy. ATTENDING PHYSICIAN: Alicia Jon MD ANESTHESIA: General. ESTIMATED BLOOD LOSS: Minimal. FLUIDS: 2 liters. URINE OUTPUT: 200 mL (concentrated). FINDINGS: The patient had purulent fluid throughout the abdomen, mild dilatation and inflammatory changes were noted of the small bowel. The appendix was found densely adhered in the right lower quadrant/pelvic area against the sidewall, overlying bowel was adherent to it. Distal half was necrotic, base was normal. SPECIMEN: Appendix. DRAINS: A 19-Libyan SUSAN drain. COMPLICATIONS: None. DISPOSITION: Stable, transferred to Recovery Room. INDICATIONS: This is a 48-year-old male who presents with approximately 2-day history of abdominal pain that began in the epigastric region progressed to the umbilicus and then spread throughout the abdomen. Denied fevers, but has had chills and nausea. CT scan suggested appendicitis without evidence of perforation. The patient was assessed to be in need for laparoscopic appendectomy. Procedure, risks and benefits were explained to the patient. Risks included but were not limited to infection, bleeding, pain, injury to surrounding structures, possible need for bowel resection, possible need for ostomy creation and possible need for further procedures in the future. The patient understood and consented. OPERATIVE NOTE: The patient was brought to the operating room and placed on the table in supine position. After adequate general anesthesia was established, the patient was prepped and draped in the usual sterile fashion. The patient was already on antibiotics. SCDs were in place. Williamson catheter was inserted. In case this turned out to be a long case, timeout was called. I began by placing a Veress needle in the left upper quadrant at Judge's point. I was able to insufflate on the first attempt. This was then replaced with a 5 mm port, it was inserted using the Optiview technique. I entered the peritoneal cavity safely. There was no obvious injury to the underlying structures. We eventually placed a 12 mm port in the left lower quadrant and a 5 mm port in the suprapubic area in the midline and then another 5 mm port in the middle of the case in the right upper quadrant. What we found was dilated small bowel that is mildly inflamed. The bowel in the right lower quadrant was densely adhered down to the sidewall. It was difficult initially to identify where the appendix was. 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 We had used this earlier as part of our retraction of the adjacent bowel. It appeared to have a cylindrical like appearance. Therefore, we dissected this off the small bowel. I did check the small bowel at the end and there was no damage or perforation to small bowel. Once we were done dissecting it out, it just seemed too thin and not thickened or inflamed as I would have expected for so much purulent fluid in the abdomen. I therefore did not stop with this. We further mobilized the cecum medially and once we had done that, once we dissected the structure off the small bowel, I then saw what seemed more like the base of the appendix. This was in a more retrocecal position. I dissected this out a little bit more and felt more comfortable that this was the appendix, as mentioned this entire area was all scarred down. It was very difficult to dissect through this. A lot of extra time was required to safely dissect the appendix out. Once I had a couple of centimeters of the base dissected out, I then decided to divide the base with the laparoscopic stapler using a blue load, I thought then I would be able to just dissect the appendix out from the retroperitoneum and sidewall. We used a 45 mm stapler with a blue load. I divided the base. We had a nice flush staple line against the cecum. There was no evidence of any bleeding. I dissected out the appendix from the surrounding scar tissue adhesions, etc. with a LigaSure device. We found the distal half to be necrotic, but I was able to get it out in whole. Once this was , we then divided the other structure that we initially thought was the appendix. We divided that at the base, this was probably part of the mesoappendix is my guess. I saw nothing else that would resemble the mesoappendix and we did dissect this off the base of the appendix. Both of the specimens were placed in the EndoCatch bag left on the side. We thoroughly irrigated out the entire abdomen with 4 liters of fluid. We examined the right lower quadrant and again we were completely hemostatic. There was no evidence of any bowel injury or leakage. Through the right upper quadrant port, we placed a 19-Libyan round drain and laid it in the pelvis going along the right gutter. At this point, we removed the EndoCatch bag from the left lower quadrant 12 mm port site and closed the site with a José Miguel-Piper fascial closure device using an 0 Vicryl stitch. We had good closure. The rest of the ports were removed under direct vision, we desufflated the abdomen. Additional local was injected into all sites. 4-0 Monocryl subcuticular stitches were then placed in all the incisions. Skin was cleaned and dried. Dermabond was placed. The patient tolerated the procedure well. There were no complications. All counts were correct at the end of the case. We removed the Williamson catheter at the end of the case. JOB# [id number] JEIMY/KURT SALDIVAR
[2019-01-02 05:19] LABS: BUN/Creatinine Ratio 11; Blood Urea Nitrogen 11 mg/dL (9-20); Calcium 8.9 mg/dL (8.4-10.2); Hemolysis Index 9
[2019-01-02] MEDS: LACTATED RINGERS 1,000 ML IV SCH (05:46)
[2019-01-02] MEDS: SODIUM CHLORIDE FLUSH SYRINGE 10 ML IV SCH (05:47)
[2019-01-02] MEDS: ZOSYN/NS 4.5GM/100ML 4.5 GM/100 ML VIAL IV SCH ×3 (05:47→21:59)
[2019-01-02] MEDS: NORCO 5/325 PO PRN ×2 (05:48→12:53)
--- NOTE | 2019-01-02 08:32 | Progress Note ---
Assessment and Plan - Patient Problems (1) Appendicitis, acute, with generalized peritonitis Current Visit: Yes Status: Acute Qualifiers: Appendicitis gangrene presence: with gangrene Appendicitis perforation presence: with perforation Appendicitis abscess presence: without abscess Qualified Code(s): K35.20 - Acute appendicitis with generalized peritonitis, without abscess; K35.891 - Other acute appendicitis without perforation, with gangrene Plan to address problem: Pt stable. s/p lap appy - /3 - POD#1. Looks much better. Extensive contamination at time of surgery. SUSAN drain looks good. Rec: 1) advance to soft diet. d/c IVF 2) ambulate 3) teach drain care 4) 1 more day of IV Abx 5) possible d/c home tomorrow if there are no issues today. Send home on Augmentin to complete 1 week therapy. Please call with questions. Subjective Date of service: 01/02/19 Patient Reports: Positive: feels better, pain is less, tolerating liquids well. Negative: nausea, vomiting Objective Vital Signs - 12hr 01/02/19 01/02/19 01/02/19 00:21 05:41 07:51 Temperature 97.8 F 98.1 F 97.6 F Pulse Rate 83 83 87 Respiratory 20 21 18 Rate Blood Pressure 105/65 114/77 Blood Pressure 112/67 [Left] O2 Sat by Pulse 95 93 95 Oximetry - General physical appearance no distress, no pain, other (looks more comfortable today) - Eyes normal occular movement - Respiratory normal expansion, normal respiratory effort - Abdomen soft, not tender, bowel sounds hypoactive, distended (mild), not guarding, not r igid, surgical scars (C/D/I), other (SUSAN with mostly serous fluid) - Psychiatric oriented to time, oriented to person, oriented to place, speech is normal, memory intact - Labs 01/01/19 12:19 01/02/19 04:14 Diabetes panel 01/01/19 01/02/19 Range/Units 12:19 04:14 Sodium 140 140 (137-145) mmol/L Potassium 4.2 4.1 (3.6-5.0) mmol/L Chloride 103.4 105.1 (98-107) mmol/L Carbon Dioxide 20 L 24 (22-30) mmol/L BUN 12 11 (9-20) mg/dL Creatinine 1.4 1.0 (0.8-1.5) mg/dL Glucose 149 H 113 H (75-100) mg/dL Calcium 8.4 8.9 (8.4-10.2) mg/dL AST 38 (5-40) units/L ALT 30 (7-56) units/L Alkaline Phosphatase 57 (35-129) units/L Total Protein 6.1 L (6.3-8.2) g/dL Albumin 3.1 L (3.9-5) g/dL Calcium panel 01/01/19 01/02/19 Range/Units 12: 04:14 Calcium 8.4 8.9 (8.4-10.2) mg/dL Albumin 3.1 L (3.9-5) g/dL Pituitary panel 01/01/19 01/02/19 Range/Units 12: 04:14 Sodium 140 140 (137-145) mmol/L Potassium 4.2 4.1 (3.6-5.0) mmol/L Chloride 103.4 105.1 (98-107) mmol/L Carbon Dioxide 20 L 24 (22-30) mmol/L BUN 12 11 (9-20) mg/dL Creatinine 1.4 1.0 (0.8-1.5) mg/dL Glucose 149 H 113 H (75-100) mg/dL Calcium 8.4 8.9 (8.4-10.2) mg/dL Adrenal panel 01/01/19 01/02/19 Range/Units 12: 04:14 Sodium 140 140 (137-145) mmol/L Potassium 4.2 4.1 (3.6-5.0) mmol/L Chloride 103.4 105.1 (98-107) mmol/L Carbon Dioxide 20 L 24 (22-30) mmol/L BUN 12 11 (9-20) mg/dL Creatinine 1.4 1.0 (0.8-1.5) mg/dL Glucose 149 H 113 H (75-100) mg/dL Calcium 8.4 8.9 (8.4-10.2) mg/dL Total Bilirubin 3.20 H (0.1-1.2) mg/dL AST 38 (5-40) units/L ALT 30 (7-56) units/L Alkaline Phosphatase 57 (35-129) units/L Total Protein 6.1 L (6.3-8.2) g/dL Albumin 3.1 L (3.9-5) g/dL
--- NOTE | 2019-01-02 08:47 | Progress Note ---
Assessment and Plan Assessment and plan: --Acute appendicitis; lap appendectomy Continue postop care, IV fluids, IV antibiotics GI soft diet , advance as tolerated surgery following --DVT prophylaxis; on Lovenox Hold Lovenox. Postop State History Interval history: Patient seen and examined medical records reviewed Patient feels slightly better No new complaints Vital signs noted Hospitalist Physical - Constitutional Vitals: Temp Pulse Resp BP Pulse Ox 97.6 F 87 18 112/67 95 01/02/19 07:51 01/02/19 07:51 01/02/19 07:51 01/02/19 07:51 01/02/19 07:51 General appearance: Present: no acute distress, well-nourished - EENT Eyes: Present: PERRL, EOM intact - Neck Neck: Present: supple, normal ROM - Respiratory Respiratory effort: normal Respiratory: bilateral: diminished, negative: rales, rhonchi, wheezing - Cardiovascular Rhythm: regular Heart Sounds: Present: S1 & S2 - Extremities Extremities: no ischemia, No edema - Abdominal General gastrointestinal: soft, tender, hypoactive bowel sounds, other (drainage tube in place) - Integumentary Integumentary: Present: clear, warm - Psychiatric Psychiatric: appropriate mood/affect, cooperative - Neurologic Neurologic: CNII-XII intact, moves all extremities Results - Labs CBC & Chem 7: 01/01/19 12:19 01/02/19 04:14 Labs: Laboratory Last Values WBC 9.0 K/mm3 (4.5-11.0) 01/01/19 12:19 RBC 4.97 M/mm3 (3.65-5.03) 01/01/19 12:19 Hgb 14.2 gm/dl (11.8-15.2) 01/01/19 12:19 Hct 42.6 % (35.5-45.6) D 01/01/19 12:19 MCV 86 fl (84-94) 01/01/19 12:19 MCH 29 pg (28-32) 01/01/19 12:19 MCHC 34 % (32-34) 01/01/19 12:19 RDW 13.7 % (13.2-15.2) 01/01/19 12:19 Plt Count 134 K/mm3 (140-440) L 01/01/19 12:19 Lymph % (Auto) 6.9 % (13.4-35.0) L 01/01/19 12:19 [place] % (Auto) 2.9 % (0.0-7.3) 01/01/19 12:19 Eos % (Auto) 0.0 % (0.0-4.3) 01/01/19 12:19 Baso % (Auto) 0.3 % (0.0-1.8) 01/01/19 12:19 Lymph # 0.6 K/mm3 (1.2-5.4) L 01/01/19 12:19 [place] # 0.3 K/mm3 (0.0-0.8) 01/01/19 12:19 Eos # 0.0 K/mm3 (0.0-0.4) 01/01/19 12:19 Baso # 0.0 K/mm3 (0.0-0.1) 01/01/19 12:19 Seg Neutrophils % 89.9 % (40.0-70.0) H 01/01/19 12:19 Seg Neutrophils # 8.1 K/mm3 (1.8-7.7) H 01/01/19 12:19 Sodium 140 mmol/L (137-145) 01/02/19 04:14 Potassium 4.1 mmol/L (3.6-5.0) 01/02/19 04:14 Chloride 105.1 mmol/L (98-107) 01/02/19 04:14 Carbon Dioxide 24 mmol/L (22-30) 01/02/19 04:14 15 mmol/L 01/02/19 04:14 BUN 11 mg/dL (9-20) 01/02/19 04:14 1.0 mg/dL (0.8-1.5) 01/02/19 04:14 Estimated GFR > 60 ml/min 01/02/19 04:14 11 % 01/02/19 04:14 Glucose 113 mg/dL (75-100) H 01/02/19 04:14 Calcium 8.9 mg/dL (8.4-10.2) 01/02/19 04:14 3.20 mg/dL (0.1-1.2) H 01/01/19 12:19 AST 38 units/L (5-40) 01/01/19 12:19 ALT 30 units/L (7-56) 01/01/19 12:19 57 units/L (35-129) 01/01/19 12:19 6.1 g/dL (6.3-8.2) L 01/01/19 12:19 3.1 g/dL (3.9-5) L 01/01/19 12:19 1.0 % 01/01/19 12:19 10 units/L (13-60) L 12/31/18 12:23 Yellow (Yellow) 12/31/18 15:46 Clear (Clear) 12/31/18 15:46 6.0 (5.0-7.0) 12/31/18 15:46 Ur Specific [place] 1.021 (1.003-1.030) 12/31/18 15:46 30 mg/dl mg/dL (Negative) 12/31/18 15:46 Neg mg/dL (Negative) 12/31/18 15:46 Tr mg/dL (Negative) 12/31/18 15:46 Neg (Negative) 12/31/18 15:46 Neg (Negative) 12/31/18 15:46 Neg (Negative) 12/31/18 15:46 2.0 mg/dL (<2.0) 12/31/18 15:46 Ur Leukocyte Esterase Neg (Negative) 12/31/18 15:46 1.0 /HPF (0.0-6.0) 12/31/18 15:46 3.0 /HPF (0.0-6.0) 12/31/18 15:46 U Epithel Cells (Auto) < 1.0 /HPF (0-13.0) 12/31/18 15:46 3+ /HPF 12/31/18 15:46 Active Medications - Current Medications Current Medications: Generic Name Dose Route Start Last Admin Trade Name Freq PRN Reason Stop Dose Admin Acetaminophen 650 mg 12/31/18 15:45 Tylenol PO Q4H PRN Pain MILD(1-3)/Fever >100.5/BLANCAS Acetaminophen/Hydrocodone Bitart 2 each 01/01/19 10:40 01/02/19 05:48 [place] 5/325 PO 2 each Q6H PRN Administration Pain, Moderate (4-6) Albuterol 2.5 mg 06/02/19 15:45 Proventil IH Q4HRT PRN Shortness Of Breath Enoxaparin Sodium 40 mg 12/31/18 22:00 01/01/19 21:23 Lovenox SUB-Q 40 mg QDAY@2200 CEDRICK Administration Piperacillin Sod/Tazobactam Sod 4.5 gm in 100 mls @ 200 mls/hr 12/31/18 22:00 01/02/19 05:47 Zosyn/Ns 4.5gm/100ml IV 200 mls/hr Q8HR CEDRICK Administration Protocol Ondansetron HCl 4 mg 12/31/18 15:45 01/01/19 08:08 Zofran IV 4 mg Q8H PRN Administration Nausea And Vomiting Sodium Chloride 10 ml 12/31/18 22:00 01/02/19 05:47 Sodium Chloride Flush Syringe 10 Ml IV 10 ml BID CEDRICK Administration Sodium Chloride 10 ml 12/31/18 15:45 Sodium Chloride Flush Syringe 10 Ml IV PRN PRN LINE FLUSH
[2019-01-02] MEDS: LOVENOX SUB-Q SCH (21:59)
[2019-01-03] MEDS: SODIUM CHLORIDE FLUSH SYRINGE 10 ML IV SCH ×2 (01:49→05:15)
[2019-01-03] MEDS: ZOSYN/NS 4.5GM/100ML 4.5 GM/100 ML VIAL IV SCH (05:15)
[2019-01-03 07:43] VITALS: BP 119/73
--- NOTE | 2019-01-03 07:53 | Progress Note ---
Assessment and Plan - Patient Problems (1) Appendicitis, acute, with generalized peritonitis Current Visit: Yes Status: Acute Qualifiers: Appendicitis gangrene presence: with gangrene Appendicitis perforation presence: with perforation Appendicitis abscess presence: without abscess Qualified Code(s): K35.20 - Acute appendicitis with generalized peritonitis, without abscess; K35.891 - Other acute appendicitis without perforation, with gangrene Plan to address problem: Pt stable. s/p lap appy - / - POD#2. Looks much better. Pain improved. SUSAN with serous fluid only. Tolerated soft diet Rec: 1) diet as tolerated. Focus more on liquids only passing flatus 2) ambulate 3) Augmentin at home to complete 7 day course 4) f/u 1 week 5) ok to d/c home from my standpoint. Please call with questions. Subjective Date of service: 01/03/19 Patient Reports: Positive: no new complaints, feels better, pain is less, tolerating a regular diet, no flatus, no bowel movement, other (belching). Negative: nausea, vomiting Objective Vital Signs - 12hr 01/02/19 01/03/19 01/03/19 22:00 00:00 04:34 Temperature 97.9 F 97.8 F Pulse Rate 85 88 Respiratory 18 18 18 Rate Blood Pressure 124/73 113/70 O2 Sat by Pulse 96 96 93 Oximetry 01/03/19 06:52 Temperature 98.5 F Pulse Rate 83 Respiratory 20 Rate Blood Pressure 119/73 O2 Sat by Pulse 97 Oximetry - General physical appearance no distress, no pain, other (looks well) - Eyes normal occular movement - Respiratory normal expansion, normal respiratory effort - Abdomen soft, tender (mild - appropriate), bowel sounds hypoactive, not guarding, not rigid, surgical scars (C/D/I), other (SUSAN with serous fluid only. SUSAN removed easily) - Integumentary no rash, no growths, no abnormal pigmentation - Psychiatric oriented to time, oriented to person, oriented to place, speech is normal, memory intact - Labs 01/01/19 12:19 01/02/19 04:14
--- NOTE | 2019-01-03 08:21 | Discharge Summary ---
Providers - Providers Date of Admission: 12/31/18 15:45 Date of discharge: 01/03/19 Attending physician: POLO LYONS 12/31/18 15:19 Consult to Physician [CONS] Routine Comment: DR YAEL PAINTING W/ DR HARRIS @ 1510 Consulting Provider: CHELA HARRIS Physician Instructions: Reason For Exam: appendicitis [facility] Reason for admission: Abdominal pain/Ac.Appendicitis Condition: Stable Pertinent studies: ct abd and pelvis:Ac appendicitis,dialated appendix Lap appendectomy;enlarged, thickened, appendix with necrotic distal portion. purulent fluid in the abdomen. Procedures: Lap appendectomy Hospital course: 48 YO Male with no PMH was admitted through ED with abdominal pain of 1 day duration,with worsening symptoms Pt states that pain in 10/10, constant, nonradiating, localized to the right side of his abdomen, without exacerbating or alleviating factors, not associated with meals Pt underwent CT Abdomen/Pelvis which revealed Acute Appendicitis. Pt admitted to Surgical floor, and initiated on IV antibiotic therpay. Surgery has evaluated in consultation and subsequently underwent Lap appendectomy.Received IV antibiotis,Post op care and diet advanced as tolerated Today patint is comfortable,no new complaints,vital signs stable,Physical exam unremarkable. Cleared by surg for discharge on po antibiotics and f/u per schedule. Patient stable at discharge. Discharge Diagnosis: --Acute appendicitis; lap appendectomy supportive care GI soft diet , advance as tolerated DC on oral antibiotics and f/u per schedule --DVT prophylaxis; on Lovenox Disposition: DC-01 TO HOME OR SELFCARE Time spent for discharge: 31 min Core Measure Documentation - Palliative Care Palliative Care/ Comfort Measures: Not Applicable - Core Measures Any of the following diagnoses?: none Exam - Constitutional Vitals: Temp Pulse Resp BP Pulse Ox 98.5 F 83 20 119/73 97 01/03/19 06:52 01/03/19 06:52 01/03/19 06:52 01/03/19 06:52 01/03/19 06:52 General appearance: Present: no acute distress, well-nourished - EENT Eyes: Present: PERRL, EOM intact - Neck Neck: Present: supple, normal ROM - Respiratory Respiratory effort: normal Respiratory: negative: rales, rhonchi, wheezing - Cardiovascular Rhythm: regular Heart Sounds: Present: S1 & S2 - Extremities Extremities: no ischemia, No edema - Abdominal General gastrointestinal: Present: soft, non-tender, non-distended, normal bowel sounds - Integumentary Integumentary: Present: clear, warm - Musculoskeletal Musculoskeletal: strength equal bilaterally - Psychiatric Psychiatric: appropriate mood/affect, cooperative - Neurologic Neurologic: CNII-XII intact, moves all extremities Plan Activity: advance as tolerated Diet: other (soft diet and advance as tolerated) Additional Instructions: Soft Diet advance as tolerated. Plenty of oral fluids Follow up with: LISA NIEVES MD [Primary Care Provider] - 3-5 Days CHELA HARRIS MD [Staff Physician] - 7 Days Prescriptions: Amoxicillin/K Clav Tab [Augmentin 875 mg] 1 tab PO Q12HR #14 tab
== END 2019-01-03 10:43 | disposition home or self-care (01) | DRG 343 ==
LOC: ED 11:49 → 3B-SURG 15:45
PROVIDERS: ADMIT Internal Medicine; ATTEND Internal Medicine
PROC: 0DTJ4ZZ Resection of Appendix, Percutaneous Endoscopic Approach (ICD-10-PCS; principal; 2019-01-01)
DX: K35.20 Acute appendicitis with generalized peritonitis, without abscess (principal)
CPT/HCPCS: 36415; 74176; 80048; 80053; 81001; 83690; 85025; 88304; G0378; A4217; J0330; J1100; J1170; J1650; J1885; J2250; J2270; J2405; J2543; J2704; J7030; J7120

== ENCOUNTER 2019-01-18 13:40 | Inpatient (IN) | payer OTHER, SELFPAY ==
--- NOTE | 2019-01-18 13:56 | Emergency Department Report ---
Blank Doc - Documentation Documentation: This is a 49-year-old male that present swith abdominal pain with nausea. Den ies any vomiting. This initial assessment/diagnostic orders/clinical plan/treatment(s) is/are subject to change based on patient's health status, clinical progression and re- assessment by fellow clinical providers in the ED. Further treatment and workup at subsequent clinical providers discretion. Patient/guardians urged not to elope from the ED as their condition may be serious if not clinically assessed and managed. Initial orders include: 1- Patient sent to [facility] for further evaluation and treatment 2- labs 3- ua
[2019-01-18 14:35] LABS: Basophils # (Auto) 0.1 K/mm3 (0.0-0.1); Basophils % (Auto) 0.6 % (0.0-1.8); Eosinophils % (Auto) 0.2 % (0.0-4.3); Hematocrit 41.5 % (35.5-45.6); Hemoglobin 14.1 gm/dl (11.8-15.2); Lymphocytes # (Auto) 1.9 K/mm3 (1.2-5.4); Lymphocytes % (Auto) 14.7 % (13.4-35.0); Mean Corpuscular HGB Conc 34 % (32-34); Mean Corpuscular Volume 84 fl (84-94); Monocytes # (Auto) 1.2 K/mm3 (0.0-0.8); Monocytes % (Auto) 9.1 % (0.0-7.3); Platelet Count 311 K/mm3 (140-440); Red Blood Count 4.92 M/mm3 (3.65-5.03); Red Cell Distribution Width 12.8 % (13.2-15.2)
[2019-01-18 14:50] LABS: Alanine Aminotransferase 31 units/L (7-56); Albumin 3.6 g/dL (3.9-5); BUN/Creatinine Ratio 10; Blood Urea Nitrogen 10 mg/dL (9-20); Calcium 9.1 mg/dL (8.4-10.2); Hemolysis Index 0
[2019-01-18] MEDS ORDERED: ZOFRAN IV ONE (15:04)
[2019-01-18] MEDS ORDERED: MORPHINE IV ONE (15:04)
[2019-01-18] MEDS ORDERED: NACL 0.9% 1000 ML 1,000 ML IV ONE (15:04)
--- NOTE | 2019-01-18 15:40 | Emergency Department Report ---
<LACIE CRUZ - Last Filed: 01/18/19 17:57> ED Abdominal Pain HPI - General Chief Complaint: Abdominal Pain Stated Complaint: SEVERE ABD PAIN Time Seen by Provider: 01/18/19 13:56 - Related Data Previous Rx's Medication Instructions Recorded Last Taken Type Amoxicillin/K Clav Tab [Augmentin 1 tab PO Q12HR #14 tab 01/03/19 Unknown Rx 875 mg] Allergies Allergy/AdvReac Type Severity Reaction Status Date / Time No Known Allergies Allergy Unverified 12/31/18 12:01 ED Past Medical Hx - Medications Home Medications: Home Medications Medication Instructions Recorded Confirmed Last Taken Type Amoxicillin/K Clav Tab [Augmentin 1 tab PO Q12HR #14 tab 01/03/19 Unknown Rx 875 mg] ED Medical Decision Making - Lab Data Result diagrams: 01/18/19 14:05 01/18/19 14:05 - Radiology Data Radiology results: report reviewed, image reviewed - Medical Decision Making Lab Results 01/18/19 01/18/19 Range/Units 14:05 14:05 WBC 13.2 H (4.5-11.0) K/mm3 RBC 4.92 (3.65-5.03) M/mm3 Hgb 14.1 (11.8-15.2) gm/dl Hct 41.5 (35.5-45.6) % MCV 84 (84-94) fl MCH 29 (28-32) pg MCHC 34 (32-34) % RDW 12.8 L (13.2-15.2) % Plt Count 311 (140-440) K/mm3 Lymph % (Auto) 14.7 (13.4-35.0) % Davison % (Auto) 9.1 H (0.0-7.3) % Eos % (Auto) 0.2 (0.0-4.3) % Baso % (Auto) 0.6 (0.0-1.8) % Lymph # 1.9 (1.2-5.4) K/mm3 Davison # 1.2 H (0.0-0.8) K/mm3 Eos # 0.0 (0.0-0.4) K/mm3 Baso # 0.1 (0.0-0.1) K/mm3 Seg Neutrophils % 75.4 H (40.0-70.0) % Seg Neutrophils # 9.9 H (1.8-7.7) K/mm3 Sodium 134 L (137-145) mmol/L Potassium 3.9 (3.6-5.0) mmol/L Chloride 96.2 L (98-107) mmol/L Carbon Dioxide 23 (22-30) mmol/L Anion Gap 19 mmol/L BUN 10 (9-20) mg/dL Creatinine 1.0 (0.8-1.5) mg/dL Estimated GFR > 60 ml/min BUN/Creatinine Ratio 10 % Glucose 113 H (75-100) mg/dL Calcium 9.1 (8.4-10.2) mg/dL Total Bilirubin 0.70 (0.1-1.2) mg/dL AST 23 (5-40) units/L ALT 31 (7-56) units/L Alkaline Phosphatase 119 (35-129) units/L Total Protein 7.5 (6.3-8.2) g/dL Albumin 3.6 L (3.9-5) g/dL Albumin/Globulin Ratio 0.9 % Lipase 22 (13-60) units/L Vital Signs 01/18/19 01/18/19 01/18/19 13:53 15:40 15:42 Temperature 99.8 F H Pulse Rate 116 H Respiratory 14 16 17 Rate Blood Pressure 118/78 [Left] O2 Sat by Pulse 100 Oximetry 01/18/19 17:14 Temperature 99.8 F H Pulse Rate 100 H Respiratory 18 Rate Blood Pressure 120/70 [Left] O2 Sat by Pulse [address] NOTED BLOOD CULTURES DRAWN DR JON CALLED AND CASE DISCUSSED WITH HIM. PT WILL BE ADMITTED TO [facility] FOR IV FLAGYL AND ZOSYN NPO P [place] CONSULT IR IN AM ? DRAINAGE OF FLUID- SEE CT. CT ORDERED WITH PO CONTRAST PER DR STEVEN JONES NOTIFIED OF ADMIT ADMIT TO SURGERY NPO P MN BRIDGE ORDERS PLACED. ED Disposition Clinical Impression: Abdominal pain, Pelvic abscess in male Disposition: - OP ADMIT IP TO THIS HOSP Is pt being admited?: Yes Does the pt Need Aspirin: No Condition: Stable Time of Disposition: 18:00 <JAMIE KENNEY - Last Filed: 01/19/19 19:23> ED Abdominal Pain HPI - General Source: patient Mode of arrival: Ambulatory Limitations: No Limitations - History of Present Illness Initial Comments: 49-year-old male presents to ED with abdominal pain for approximately 1.5 weeks. Patient status post laparoscopic appendectomy approximately 2 weeks ago. Patient states pain began shortly after discharge. States is located just below the umbilicus. Reports nausea, constipation, no vomiting. Patient seen by his surgeon, Dr Jon, on yesterday. Was given rx for augmentin. Pt presents today b/c the pain has worsened. MD Complaint: abdominal pain -: week(s) (1.5) Location: periumbilical Radiation: none Migration to: no migration Severity: moderate Quality: cramping Consistency: constant Improves With: nothing Worsens With: nothing Context: recent surgery/procedure Associated Symptoms: nausea, constipation. denies: vomiting ED Review of Systems ROS: Stated complaint: SEVERE ABD PAIN Other details as noted in HPI Comment: All other systems reviewed and negative Constitutional: denies: fever Gastrointestinal: abdominal pain, nausea, constipation. denies: vomiting ED Past Medical Hx - Past Medical History Hx Congestive Heart Failure: No Hx Diabetes: No Hx Asthma: No Hx HIV: No - Surgical History Past Surgical History?: No - Social History Smoking Status: Never Smoker Substance Use Type: None ED Physical Exam - General Limitations: No Limitations General appearance: alert, in no apparent distress - Head Head exam: Present: atraumatic, normocephalic - Eye Eye exam: Present: normal appearance - ENT ENT exam: Present: mucous membranes moist - Neck Neck exam: Present: normal inspection - Respiratory Respiratory exam: Present: normal lung sounds bilaterally. Absent: respiratory distress - Cardiovascular Cardiovascular Exam: Present: normal rhythm, tachycardia - GI/Abdominal GI/Abdominal exam: Present: soft, tenderness (mild periumbilical tenderness). Absent: distended - Extremities Exam Extremities exam: Present: normal inspection - Neurological Exam Neurological exam: Present: alert, oriented X3 - Psychiatric Psychiatric exam: Present: normal affect, normal mood ED Course Vital Signs 01/18/19 01/18/19 01/18/19 13:53 15:40 15:42 Temperature 99.8 F H Pulse Rate 116 H Respiratory 14 16 17 Rate Blood Pressure 118/78 [Left] O2 Sat by Pulse 100 Oximetry 01/18/19 01/18/19 17:14 19:32 Temperature 99.8 F H 100.1 F H Pulse Rate 100 H 107 H Respiratory 18 16 Rate Blood Pressure 120/70 105/77 [Left] O2 Sat by Pulse 98 97 Oximetry ED Medical Decision Making - Lab Data Result diagrams: 01/19/19 08:15 01/19/19 08:15 Critical care attestation.: If time is entered above; I have spent that time in minutes in the direct care of this critically ill patient, excluding procedure time.
--- NOTE | 2019-01-18 17:15 | Cat Scan Report ---
PROCEDURE: CT ABDOMEN PELVIS W CON TECHNIQUE: Computerized axial tomography of the abdomen and pelvis was performed after the administr ation of IV iodinated nonionic contrast. CT DOSE LENGTH PRODUCT: 4203.1 mGycm HISTORY: abd pain, s/p recent appendectomy COMPARISONS: None . FINDINGS: Contrast-enhanced CT of the abdomen and pelvis was performed and compared to the prior exam ination of December 31, 2018. There is a small pericardial effusion measuring up to 0.7 cm in thickness. ABDOMEN: No suspect focal hepatic lesion is seen. The spleen is mildly large at 13.9 x 4.4 cm. The adrenal glands are within normal limits. No focal pancreatic lesion is seen. The gallbladder is distended but is otherwise unremarkable. There is no adrenal lesion identified. There is no renal or ureteral calculus. Pelvis: There is dilation of multiple small bowel loops with transition in the central pelvis, on about image 192 consistent with partial small bowel obstruction. In the central pelvis, superior to the prostate and anterior to the distal sigmoid colon, there is a rim-enhancing collection likely abscess, axial image 192, sagittal image 115, 5.5 x 6.7 x 5.3 cm. The patient is status post recent appendectomy. There is considerable wall thickening of the distal sigmoid colon and rectum. These lies immediately posterior to the presumed abscess and is likely secondarily inflamed. IMPRESSION: ABDOMEN: No renal or ureteral calculus Pelvis: Rim-enhancing fluid collection in central pelvis, superior to prostate and anterior to distal sigmoid colon, likely abscess Partial small bowel bowel obstruction, with transition in central pelvis at level of abscess Wall thickening of distal sigmoid colon and rectum, likely secondarily inflamed by the adjacent absce ss. This document is electronically signed by Mendel Carney MD., January 18 2019 05:13:19 PM ET
[2019-01-18] MEDS ORDERED: FLAGYL 500 MG/100 ML 500 MG/100 ML BAG IV ONE (17:47)
[2019-01-18] MEDS ORDERED: ZOSYN/NS 3.375GM/50ML 3.375 GM/50 ML BAG IV ONE (18:20)
[2019-01-18 18:42] LABS: Bilirubin,Urine NEG (Negative); Blood,Urine NEG (Negative); Color,Urine Yellow (Yellow); Mucus,Urine FEW /HPF; Protein,Urine <15 mg/dL mg/dL (Negative); Urobilinogen,Urine < 2.0 mg/dL (<2.0)
[2019-01-18] MEDS ORDERED: TYLENOL PO PRN (21:24)
[2019-01-18] MEDS ORDERED: SODIUM CHLORIDE FLUSH SYRINGE 10 ML IV PRN (21:24)
--- NOTE | 2019-01-18 21:24 | History and Physical Report ---
History of Present Illness Date of examination: 01/18/19 Date of admission: 01/18/19 17:53 Chief complaint: RLQ pain for 10 days History of present illness: 49-year-old male presents to ED with abdominal pain for approximately 10 days. Patient had laparoscopic appendectomy approximately 2 weeks ago. Patient states pain began shortly after discharge. States is located just below the umbilicus. Reports nausea, constipation, no vomiting. Patient seen by his surgeon, Dr Jon, yesterday. Was given rx for augmentin. Pt presents today b/c the pain has worsened. Past Medical History None Surgical History Appendectomy Social History Smoking Status: Never Smoker Substance Use Type: None' Family History Htn Medications Home Medications: Home Medications Medication Instructions Recorded Confirmed Last Taken Type Amoxicillin/K Clav Tab [Augmentin 1 tab PO Q12HR #14 tab 01/03/19 Unknown Rx 875 mg] Review of Systems Comment: All other systems reviewed and negative Constitutional: denies: fever Gastrointestinal: abdominal pain, nausea, constipation. denies: vomiting Medications and Allergies Allergies Allergy/AdvReac Type Severity Reaction Status Date / Time No Known Allergies Allergy Unverified 12/31/18 12:01 Home Medications Medication Instructions Recorded Confirmed Last Taken Type Amoxicillin/K Clav Tab [Augmentin 1 tab PO Q12HR #14 tab 01/03/19 Unknown Rx 875 mg] Exam - Constitutional Vitals: Temp Pulse Resp BP Pulse Ox 100.1 F H 107 H 16 105/77 97 01/18/19 19:32 01/18/19 19:32 01/18/19 19:32 01/18/19 19:32 01/18/19 19:32 General appearance: Present: no acute distress, well-nourished - EENT Eyes: Present: PERRL ENT: hearing intact, clear oral mucosa - Neck Neck: Present: supple, normal ROM - Respiratory Respiratory effort: normal Respiratory: bilateral: CTA - Cardiovascular Heart rate: 80 Rhythm: regular Heart Sounds: Present: S1 & S2. Absent: rub, click - Extremities Extremities: no ischemia, pulses intact, pulses symmetrical, No edema Peripheral Pulses: within normal limits - Abdominal General gastrointestinal: Present: soft, tender (RLQ tender), normal bowel sounds Localized gastrointestinal: tender: RLQ, guarding: RLQ - Integumentary Integumentary: Present: clear, warm, dry - Musculoskeletal Musculoskeletal: gait normal, strength equal bilaterally - Psychiatric Psychiatric: appropriate mood/affect, intact judgment & insight - Neurologic Neurologic: CNII-XII intact, moves all extremities Results - Labs CBC & Chem 7: 01/18/19 14:05 01/18/19 14:05 Labs: Laboratory Last Values WBC 13.2 K/mm3 (4.5-11.0) H 01/18/19 14:05 RBC 4.92 M/mm3 (3.65-5.03) 01/18/19 14:05 Hgb 14.1 gm/dl (11.8-15.2) 01/18/19 14:05 Hct 41.5 % (35.5-45.6) 01/18/19 14:05 MCV 84 fl (84-94) 01/18/19 14:05 MCH 29 pg (28-32) 01/18/19 14:05 MCHC 34 % (32-34) 01/18/19 14:05 RDW 12.8 % (13.2-15.2) L 01/18/19 14:05 Plt Count 311 K/mm3 (140-440) 01/18/19 14:05 Lymph % (Auto) 14.7 % (13.4-35.0) 01/18/19 14:05 Rock % (Auto) 9.1 % (0.0-7.3) H 01/18/19 14:05 Eos % (Auto) 0.2 % (0.0-4.3) 01/18/19 14:05 Baso % (Auto) 0.6 % (0.0-1.8) 01/18/19 14:05 Lymph # 1.9 K/mm3 (1.2-5.4) 01/18/19 14:05 Rock # 1.2 K/mm3 (0.0-0.8) H 01/18/19 14:05 Eos # 0.0 K/mm3 (0.0-0.4) 01/18/19 14:05 Baso # 0.1 K/mm3 (0.0-0.1) 01/18/19 14:05 Seg Neutrophils % 75.4 % (40.0-70.0) H 01/18/19 14:05 Seg Neutrophils # 9.9 K/mm3 (1.8-7.7) H 01/18/19 14:05 Sodium 134 mmol/L (137-145) L 01/18/19 14:05 Potassium 3.9 mmol/L (3.6-5.0) 01/18/19 14:05 Chloride 96.2 mmol/L (98-107) L 01/18/19 14:05 Carbon Dioxide 23 mmol/L (22-30) 01/18/19 14:05 19 mmol/L 01/18/19 14:05 BUN 10 mg/dL (9-20) 01/18/19 14:05 1.0 mg/dL (0.8-1.5) 01/18/19 14:05 Estimated GFR > 60 ml/min 01/18/19 14:05 10 % 01/18/19 14:05 Glucose 113 mg/dL (75-100) H 01/18/19 14:05 Calcium 9.1 mg/dL (8.4-10.2) 01/18/19 14:05 0.70 mg/dL (0.1-1.2) 01/18/19 14:05 AST 23 units/L (5-40) 01/18/19 14:05 ALT 31 units/L (7-56) 01/18/19 14:05 119 units/L (35-129) 01/18/19 14:05 7.5 g/dL (6.3-8.2) 01/18/19 14:05 3.6 g/dL (3.9-5) L 01/18/19 14:05 0.9 % 01/18/19 14:05 22 units/L (13-60) 01/18/19 14:05 Yellow (Yellow) 01/18/19 18:25 Clear (Clear) 01/18/19 18:25 5.0 (5.0-7.0) 01/18/19 18:25 <15 mg/dl mg/dL (Negative) 01/18/19 18:25 Neg mg/dL (Negative) 01/18/19 18:25 20 mg/dL (Negative) 01/18/19 18:25 Neg (Negative) 01/18/19 18:25 Neg (Negative) 01/18/19 18:25 Neg (Negative) 01/18/19 18:25 < 2.0 mg/dL (<2.0) 01/18/19 18:25 Ur Leukocyte Esterase Neg (Negative) 01/18/19 18:25 3.0 /HPF (0.0-6.0) 01/18/19 18:25 2.0 /HPF (0.0-6.0) 01/18/19 18:25 U Epithel Cells (Auto) < 1.0 /HPF (0-13.0) 01/18/19 18:25 Few /HPF 01/18/19 18:25 Short CBC 01/18/19 Range/Units 14:05 WBC 13.2 H (4.5-11.0) K/mm3 Hgb 14.1 (11.8-15.2) gm/dl Hct 41.5 (35.5-45.6) % Plt Count 311 (140-440) K/mm3 BMP 01/18/19 14:05 Sodium 134 L Potassium 3.9 Chloride 96.2 L Carbon Dioxide 23 BUN 10 Creatinine 1.0 Glucose 113 H Calcium 9.1 Liver Function 01/18/19 Range/Units 14:05 Total Bilirubin 0.70 (0.1-1.2) mg/dL AST 23 (5-40) units/L ALT 31 (7-56) units/L Alkaline Phosphatase 119 (35-129) units/L Albumin 3.6 L (3.9-5) g/dL Urine 01/18/19 Range/Units 18:25 Urine Color Yellow (Yellow) Urine pH 5.0 (5.0-7.0) Urine Protein <15 mg/dl (Negative) mg/dL Urine Glucose (UA) Neg (Negative) mg/dL - Imaging and Cardiology CT scan - abdomen: report reviewed Imaging and Cardiology: CT Abdomen IMPRESSION: ABDOMEN: No renal or ureteral calculus Pelvis: Rim-enhancing fluid collection in central pelvis, superior to prostate and anterior to distal sigmoid colon, likely abscess Partial small bowel bowel obstruction, with transition in central pelvis at level of abscess Wall thickening of distal sigmoid colon and rectum, likely secondarily inflamed by the adjacent abscess. Assessment and Plan Advance Directives: Yes (Full code) VTE prophylaxis?: Mechanical Plan of care discussed with patient/family: Yes - Patient Problems (1) Appendix abscess Current Visit: Yes Status: Acute Plan to address problem: IV abx in the form of Zosyn Surg and IR consult (2) DVT prophylaxis Current Visit: Yes Status: Acute Plan to address problem: On SCD's
--- NOTE | 2019-01-18 21:32 | Cat Scan Report ---
PROCEDURE: CT ABDOMEN PELVIS WO CON TECHNIQUE: Computerized axial tomography of the abdomen and pelvis was performed without intravenous contrast. This study is performed without intravascular contrast material and its sensitivity for ab dominal and pelvic pathology, including neoplasms, inflammation, abscess, free fluid, thrombosis, art erial dissection and infarction, is reduced compared with a contrast enhanced study. Oral contrast wa s given CT DOSE LENGTH PRODUCT: 1767.7 mGycm HISTORY: abd pain; need oral contrast for IR/surgery COMPARISONS: 01/18/2019 at 4:24 PM . FINDINGS: Liver, spleen, pancreas and adrenal glands are within normal limits. Bilateral kidneys demonstrate re sidual IV contrast without any hydronephrosis. Aorta is of normal caliber. An irregular bilobed fluid collection is noted in the pelvic cavity measuring 5.4 in the transverse dimension and 4.9 in the ma ximal AP dimension as seen on the prior study. There is associated thickening of the rectal milligan and distal ileal loops resulting in partial small bowel obstruction. Contrast is seen to enter the colon . There is no free fluid. IMPRESSION: Partial distal ileal obstruction secondary to an irregular pelvic fluid collection suspicious for abs cess. This is not significantly changed since the prior study. This document is electronically signed by Johan Pitt MD., January 18 2019 09:30:31 PM ET
[2019-01-18] MEDS: ZOFRAN IV PRN (22:00)
[2019-01-18] MEDS: PEPCID IV SCH (22:00)
[2019-01-18] MEDS: DILAUDID IV PRN (22:00)
[2019-01-18] MEDS: SODIUM CHLORIDE FLUSH SYRINGE 10 ML IV SCH (22:04)
[2019-01-18] MEDS: D5NS 1,000 ML IV SCH (22:05)
[2019-01-19] MEDS: DILAUDID IV PRN ×2 (05:31→10:14)
[2019-01-19 08:46] LABS: Basophils # (Auto) 0.1 K/mm3 (0.0-0.1); Basophils % (Auto) 0.6 % (0.0-1.8); Eosinophils % (Auto) 0.4 % (0.0-4.3); Hematocrit 38.8 % (35.5-45.6); Hemoglobin 13.1 gm/dl (11.8-15.2); Lymphocytes # (Auto) 1.5 K/mm3 (1.2-5.4); Lymphocytes % (Auto) 13.5 % (13.4-35.0); Mean Corpuscular HGB Conc 34 % (32-34); Mean Corpuscular Volume 84 fl (84-94); Monocytes # (Auto) 1.1 K/mm3 (0.0-0.8); Platelet Count 281 K/mm3 (140-440); Red Cell Distribution Width 13.1 % (13.2-15.2)
[2019-01-19 09:08] LABS: Alanine Aminotransferase 28 units/L (7-56); Albumin 3.2 g/dL (3.9-5); BUN/Creatinine Ratio 8; Blood Urea Nitrogen 9 mg/dL (9-20); Calcium 8.7 mg/dL (8.4-10.2); Hemolysis Index 2
[2019-01-19] MEDS: ZOSYN/NS 4.5GM/100ML 4.5 GM/100 ML VIAL IV SCH ×3 (09:16→21:18)
--- NOTE | 2019-01-19 09:59 | Consultation ---
History of Present Illness Consult date: 01/19/19 Reason for consult: other (rectal pressure) Requesting physician: MOHIT JONES Chief complaint: rectal pressure for last week - History of present illness History of present illness: 49yo M well known to our service as we performed a lap appy about 2 weeks ago for a perforated appendicitis. Pt was sent home with abx script but he did not fill it. He reports that he did well for 1 week and then had loss of appetite and rectal pressure. Does not think he had fevers. Past History Past Medical History: No medical history Past Surgical History: appendectomy (lap - 01/01/2019) Social history: denies: smoking, alcohol abuse Family history: no significant family history Medications and Allergies Allergies Allergy/AdvReac Type Severity Reaction Status Date / Time No Known Allergies Allergy Unverified 12/31/18 12:01 Home Medications Medication Instructions Recorded Confirmed Last Taken Type Amoxicillin/K Clav Tab [Augmentin 1 tab PO Q12HR #14 tab 01/03/19 Unknown Rx 875 mg] Active Meds: Active Medications Acetaminophen (Tylenol) 650 mg PO Q4H PRN PRN Reason: Pain MILD(1-3)/Fever >100.5/BLANCAS Famotidine (Pepcid) 20 mg IV BID CEDRICK Last Admin: 01/18/19 22:00 Dose: 20 mg Documented by: Hydromorphone HCl (Dilaudid) 0.5 mg IV Q3H PRN PRN Reason: Pain , Severe (7-10) Last Admin: 01/19/19 05:31 Dose: 0.5 mg Documented by: Dextrose/Sodium Chloride (D5ns) 1,000 mls @ 75 mls/hr IV DIRECT CEDRICK Last Admin: 01/18/19 22:05 Dose: 75 mls/hr Documented by: Piperacillin Sod/Tazobactam Sod (Zosyn/Ns 4.5gm/100ml) 4.5 gm in 100 mls @ 200 mls/hr IV Q8HR CEDRICK; Protocol Ondansetron HCl (Zofran) 4 mg IV Q8H PRN PRN Reason: Nausea And Vomiting Last Admin: 01/18/19 22:00 Dose: 4 mg Documented by: Sodium Chloride (Sodium Chloride Flush Syringe 10 Ml) 10 ml IV BID CEDRICK Last Admin: 01/18/19 22:04 Dose: 10 ml Documented by: Sodium Chloride (Sodium Chloride Flush Syringe 10 Ml) 10 ml IV PRN PRN PRN Reason: LINE FLUSH Review of Systems - Constitutional poor appetite, no fever, no chills - Cardiovascular no chest pain, no shortness of breath - Respiratory no cough - Gastrointestinal nausea, loss of appetite, other (rectal pressure), no abdominal pain, no vomiting Exam Vital Signs Temp Pulse Resp BP Pulse Ox 99.8 F H 116 H 14 118/78 100 01/18/19 13:53 01/18/19 13:53 01/18/19 13:53 01/18/19 13:53 01/18/19 13:53 - General physical appearance Positive: no distress, no pain, other (non toxic) - Respiratory Positive: normal expansion, normal respiratory effort - Abdomen Abdomen: Present: soft, surgical scars (C/D/i). Absent: tender - Integumentary no rash, no growths, no abnormal pigmentation - Neurologic Neurologic: alert and oriented to time, place and person, motor strength and sensation are grossly intact - Psychiatric Psychiatric: appropriate mood/affect, intact judgment & insight, cooperative Results - Labs 01/19/19 08:15 01/19/19 08:15 Abnormal lab results 01/18/19 01/18/19 01/19/19 Range/Units 14:05 14:05 08:15 WBC 13.2 H 11.4 H (4.5-11.0) K/mm3 RDW 12.8 L 13.1 L (13.2-15.2) % [place] % (Auto) 9.1 H 10.0 H (0.0-7.3) % [place] # 1.2 H 1.1 H (0.0-0.8) K/mm3 Seg Neutrophils % 75.4 H 75.5 H (40.0-70.0) % Seg Neutrophils # 9.9 H 8.6 H (1.8-7.7) K/mm3 Sodium 134 L (137-145) mmol/L Chloride 96.2 L (98-107) mmol/L Glucose 113 H (75-100) mg/dL Albumin 3.6 L (3.9-5) g/dL 01/19/19 Range/Units 08:15 WBC (4.5-11.0) K/mm3 RDW (13.2-15.2) % [place] % (Auto) (0.0-7.3) % [place] # (0.0-0.8) K/mm3 Seg Neutrophils % (40.0-70.0) % Seg Neutrophils # (1.8-7.7) K/mm3 Sodium 134 L (137-145) mmol/L Chloride 97.5 L (98-107) mmol/L Glucose 118 H (75-100) mg/dL Albumin 3.2 L (3.9-5) g/dL Diabetes panel 01/18/19 01/18/19 01/19/19 Range/Units 14:05 14:05 08:15 Sodium 134 L 134 L (137-145) mmol/L Potassium 3.9 3.6 (3.6-5.0) mmol/L Chloride 96.2 L 97.5 L (98-107) mmol/L Carbon Dioxide 23 23 (22-30) mmol/L BUN 10 9 (9-20) mg/dL Creatinine 1.0 1.1 (0.8-1.5) mg/dL Glucose 113 H 118 H (75-100) mg/dL Hemoglobin A1c 5.9 (4-6) % Calcium 9.1 8.7 (8.4-10.2) mg/dL AST 23 17 (5-40) units/L ALT 31 28 (7-56) units/L Alkaline Phosphatase 119 108 (35-129) units/L Total Protein 7.5 6.6 (6.3-8.2) g/dL Albumin 3.6 L 3.2 L (3.9-5) g/dL Calcium panel 01/18/19 01/19/19 Range/Units 14:05 08:15 Calcium 9.1 8.7 (8.4-10.2) mg/dL Albumin 3.6 L 3.2 L (3.9-5) g/dL Pituitary panel 01/18/19 01/19/19 Range/Units 14:05 08:15 Sodium 134 L 134 L (137-145) mmol/L Potassium 3.9 3.6 (3.6-5.0) mmol/L Chloride 96.2 L 97.5 L (98-107) mmol/L Carbon Dioxide 23 23 (22-30) mmol/L BUN 10 9 (9-20) mg/dL Creatinine 1.0 1.1 (0.8-1.5) mg/dL Glucose 113 H 118 H (75-100) mg/dL Calcium 9.1 8.7 (8.4-10.2) mg/dL Adrenal panel 01/18/19 01/19/19 Range/Units 14:05 08:15 Sodium 134 L 134 L (137-145) mmol/L Potassium 3.9 3.6 (3.6-5.0) mmol/L Chloride 96.2 L 97.5 L (98-107) mmol/L Carbon Dioxide 23 23 (22-30) mmol/L BUN 10 9 (9-20) mg/dL Creatinine 1.0 1.1 (0.8-1.5) mg/dL Glucose 113 H 118 H (75-100) mg/dL Calcium 9.1 8.7 (8.4-10.2) mg/dL Total Bilirubin 0.70 0.70 (0.1-1.2) mg/dL AST 23 17 (5-40) units/L ALT 31 28 (7-56) units/L Alkaline Phosphatase 119 108 (35-129) units/L Total Protein 7.5 6.6 (6.3-8.2) g/dL Albumin 3.6 L 3.2 L (3.9-5) g/dL - Imaging CT scan - abdomen: report reviewed, image reviewed CT scan - pelvis: report reviewed, image reviewed Assessment and Plan - Patient Problems (1) Pelvic abscess in male Current Visit: Yes Status: Acute Plan to address problem: Pt stable. Pt with post appendicitis fluid collection in pelvic. Most likely abscess. recommend IR consult and consideration of drainage. Agree with IV abx. Will follow along. Please call with questions.
[2019-01-19] MEDS: PEPCID IV SCH ×2 (10:14→21:18)
[2019-01-19] MEDS: SODIUM CHLORIDE FLUSH SYRINGE 10 ML IV SCH ×2 (10:14→21:19)
--- NOTE | 2019-01-19 11:33 | Progress Note ---
Assessment and Plan Assessment and plan: Pelvic abscess. admitted to Med/Surg patient had acute appendicitis with perforation, peritonitis about 2 weeks ago, had laparoscopic appendectomy and discharged home on Augmentin. IR to drain Sepsis due to pelvic abscess, ID Physician following Antibiotics as per ID Full code status History Interval history: Patient had appendectomy about 2 weeks ago, now presents with abd pain, diagnosed with pelvic abscess Hospitalist Physical - Physical exam Narrative exam: Gen: Not in acute distress, lying in bed,obese HEENT: Normocephalic, atraumatic Neck: supple, no JVD Heart: S1 and S2 reg, no murmurs, rubs or gallop Lungs: Clear, no crackles, no wheeze Abd: soft, mild tender lower abdomen, normal BS Ext: No edema, no clubbing, no cyanosis, Neuro: Awake,alert, oriented x 3, moves all ext, non focal Psych:Normal mood - Constitutional Vitals: Temp Pulse Resp BP Pulse Ox 99.7 F H 102 H 20 93/55 95 01/18/19 21:28 01/18/19 21:28 01/19/19 06:01 01/18/19 21:28 01/18/19 21:28 General appearance: Present: no acute distress, well-nourished Results - Labs CBC & Chem 7: 01/20/19 06:00 01/20/19 06:00 Labs: Laboratory Last Values WBC 11.4 K/mm3 (4.5-11.0) H 01/19/19 08:15 RBC 4.60 M/mm3 (3.65-5.03) 01/19/19 08:15 Hgb 13.1 gm/dl (11.8-15.2) 01/19/19 08:15 Hct 38.8 % (35.5-45.6) 01/19/19 08:15 MCV 84 fl (84-94) 01/19/19 08:15 MCH 28 pg (28-32) 01/19/19 08:15 MCHC 34 % (32-34) 01/19/19 08:15 RDW 13.1 % (13.2-15.2) L 01/19/19 08:15 Plt Count 281 K/mm3 (140-440) 01/19/19 08:15 Lymph % (Auto) 13.5 % (13.4-35.0) 01/19/19 08:15 [place] % (Auto) 10.0 % (0.0-7.3) H 01/19/19 08:15 Eos % (Auto) 0.4 % (0.0-4.3) 01/19/19 08:15 Baso % (Auto) 0.6 % (0.0-1.8) 01/19/19 08:15 Lymph # 1.5 K/mm3 (1.2-5.4) 01/19/19 08:15 [place] # 1.1 K/mm3 (0.0-0.8) H 01/19/19 08:15 Eos # 0.0 K/mm3 (0.0-0.4) 01/19/19 08:15 Baso # 0.1 K/mm3 (0.0-0.1) 01/19/19 08:15 Seg Neutrophils % 75.5 % (40.0-70.0) H 01/19/19 08:15 Seg Neutrophils # 8.6 K/mm3 (1.8-7.7) H 01/19/19 08:15 Sodium 134 mmol/L (137-145) L 01/19/19 08:15 Potassium 3.6 mmol/L (3.6-5.0) 01/19/19 08:15 Chloride 97.5 mmol/L (98-107) L 01/19/19 08:15 Carbon Dioxide 23 mmol/L (22-30) 01/19/19 08:15 17 mmol/L 01/19/19 08:15 BUN 9 mg/dL (9-20) 01/19/19 08:15 1.1 mg/dL (0.8-1.5) 01/19/19 08:15 Estimated GFR > 60 ml/min 01/19/19 08:15 8 % 01/19/19 08:15 Glucose 118 mg/dL (75-100) H 01/19/19 08:15 5.9 % (4-6) 01/18/19 14:05 Calcium 8.7 mg/dL (8.4-10.2) 01/19/19 08:15 0.70 mg/dL (0.1-1.2) 01/19/19 08:15 AST 17 units/L (5-40) 01/19/19 08:15 ALT 28 units/L (7-56) 01/19/19 08:15 108 units/L (35-129) 01/19/19 08:15 6.6 g/dL (6.3-8.2) 01/19/19 08:15 3.2 g/dL (3.9-5) L 01/19/19 08:15 0.9 % 01/19/19 08:15 22 units/L (13-60) 01/18/19 14:05 Yellow (Yellow) 01/18/19 18:25 Clear (Clear) 01/18/19 18:25 5.0 (5.0-7.0) 01/18/19 18:25 <15 mg/dl mg/dL (Negative) 01/18/19 18:25 Neg mg/dL (Negative) 01/18/19 18:25 20 mg/dL (Negative) 01/18/19 18:25 Neg (Negative) 01/18/19 18:25 Neg (Negative) 01/18/19 18:25 Neg (Negative) 01/18/19 18:25 < 2.0 mg/dL (<2.0) 01/18/19 18:25 Ur Leukocyte Esterase Neg (Negative) 01/18/19 18:25 3.0 /HPF (0.0-6.0) 01/18/19 18:25 2.0 /HPF (0.0-6.0) 01/18/19 18:25 U Epithel Cells (Auto) < 1.0 /HPF (0-13.0) 01/18/19 18:25 Few /HPF 01/18/19 18:25 Active Medications - Current Medications Current Medications: Generic Name Dose Route Start Last Admin Trade Name Freq PRN Reason Stop Dose Admin Acetaminophen 650 mg 01/18/19 21:24 Tylenol PO Q4H PRN Pain MILD(1-3)/Fever >100.5/BLANCAS Famotidine 20 mg 01/18/19 22:00 01/19/19 10:14 Pepcid IV 20 mg BID CEDRICK Administration Hydromorphone HCl 0.5 mg 01/18/19 21:24 01/19/19 10:14 Dilaudid IV 0.5 mg Q3H PRN Administration Pain , Severe (7-10) Dextrose/Sodium Chloride 1,000 mls @ 75 mls/hr 01/18/19 22:00 01/18/19 22:05 D5ns IV 75 mls/hr DIRECT CEDRICK Administration Piperacillin Sod/Tazobactam Sod 4.5 gm in 100 mls @ 200 mls/hr 01/19/19 08:00 01/19/19 09:16 Zosyn/Ns 4.5gm/100ml IV 200 mls/hr Q8HR CEDRICK Administration Protocol Ondansetron HCl 4 mg 01/18/19 21:24 01/18/19 22:00 Zofran IV 4 mg Q8H PRN Administration Nausea And Vomiting Sodium Chloride 10 ml 01/18/19 22:00 01/19/19 10:14 Sodium Chloride Flush Syringe 10 Ml IV 10 ml BID CEDRICK Administration Sodium Chloride 10 ml 01/18/19 21:24 Sodium Chloride Flush Syringe 10 Ml IV PRN PRN LINE FLUSH
--- NOTE | 2019-01-19 11:45 | Consultation ---
History of Present Illness - Reason for Consult Consult date: 01/19/19 - History of Present Illness Patient with a history of abdominal pain following laparoscopic appendectomy 2 weeks ago. Upon discharge, the patient did not take postoperative antibiotics and noted to have worsened lower abdominal pain over 2 weeks necessitating the dictation of the hospital ER. Additionally, the patient has had decreased by mouth intake. A CT scan was performed which demonstrates a minimal amount of f luid in what appears to be developing abscess. Following admission, the patient was started on IV antibiotics and his abdominal pain and appetite have improved. Past History Past Medical History: No medical history Past Surgical History: appendectomy (lap - 01/01/2019) Social history: denies: smoking, alcohol abuse Family history: no significant family history Medications and Allergies Allergies Allergy/AdvReac Type Severity Reaction Status Date / Time No Known Allergies Allergy Unverified 12/31/18 12:01 Home Medications Medication Instructions Recorded Confirmed Last Taken Type Amoxicillin/K Clav Tab [Augmentin 1 tab PO Q12HR #14 tab 01/03/19 Unknown Rx 875 mg] Active Meds: Active Medications Acetaminophen (Tylenol) 650 mg PO Q4H PRN PRN Reason: Pain MILD(1-3)/Fever >100.5/BLANCAS Famotidine (Pepcid) 20 mg IV BID CEDRICK Last Admin: 01/19/19 10:14 Dose: 20 mg Documented by: Hydromorphone HCl (Dilaudid) 0.5 mg IV Q3H PRN PRN Reason: Pain , Severe (7-10) Last Admin: 01/19/19 10:14 Dose: 0.5 mg Documented by: Dextrose/Sodium Chloride (D5ns) 1,000 mls @ 75 mls/hr IV DIRECT CEDRICK Last Admin: 01/18/19 22:05 Dose: 75 mls/hr Documented by: Piperacillin Sod/Tazobactam Sod (Zosyn/Ns 4.5gm/100ml) 4.5 gm in 100 mls @ 200 mls/hr IV Q8HR CEDRICK; Protocol Last Admin: 01/19/19 09:16 Dose: 200 mls/hr Documented by: Ondansetron HCl (Zofran) 4 mg IV Q8H PRN PRN Reason: Nausea And Vomiting Last Admin: 01/18/19 22:00 Dose: 4 mg Documented by: Sodium Chloride (Sodium Chloride Flush Syringe 10 Ml) 10 ml IV BID CEDRICK Last Admin: 01/19/19 10:14 Dose: 10 ml Documented by: Sodium Chloride (Sodium Chloride Flush Syringe 10 Ml) 10 ml IV PRN PRN PRN Reason: LINE FLUSH Review of Systems All systems: negative Exam - Constitutional Vitals: Temp Pulse Resp BP Pulse Ox 99.7 F H 102 H 20 93/55 95 01/18/19 21:28 01/18/19 21:28 01/19/19 06:01 01/18/19 21:28 01/18/19 21:28 General appearance: Present: no acute distress - EENT Eyes: Present: EOM intact ENT: hearing intact - Neck Neck: Present: supple, normal ROM - Respiratory Respiratory effort: normal - Abdominal General gastrointestinal: Present: soft Male genitourinary: Present: deferred - Psychiatric Psychiatric: appropriate mood/affect, cooperative Results - Labs CBC & Chem 7: 01/19/19 08:15 01/19/19 08:15 Labs: Abnormal lab results 01/18/19 01/18/19 01/19/19 Range/Units 14:05 14:05 08:15 WBC 13.2 H 11.4 H (4.5-11.0) K/mm3 RDW 12.8 L 13.1 L (13.2-15.2) % [place] % (Auto) 9.1 H 10.0 H (0.0-7.3) % [place] # 1.2 H 1.1 H (0.0-0.8) K/mm3 Seg Neutrophils % 75.4 H 75.5 H (40.0-70.0) % Seg Neutrophils # 9.9 H 8.6 H (1.8-7.7) K/mm3 Sodium 134 L (137-145) mmol/L Chloride 96.2 L (98-107) mmol/L Glucose 113 H (75-100) mg/dL Albumin 3.6 L (3.9-5) g/dL 01/19/19 Range/Units 08:15 WBC (4.5-11.0) K/mm3 RDW (13.2-15.2) % [place] % (Auto) (0.0-7.3) % [place] # (0.0-0.8) K/mm3 Seg Neutrophils % (40.0-70.0) % Seg Neutrophils # (1.8-7.7) K/mm3 Sodium 134 L (137-145) mmol/L Chloride 97.5 L (98-107) mmol/L Glucose 118 H (75-100) mg/dL Albumin 3.2 L (3.9-5) g/dL - Imaging and Cardiology CT scan - abdomen: image reviewed Assessment and Plan Would recommend that the patient be maintained on IV antibiotics. We will obtain a CT scan of the abdomen and pelvis with IV contrast on Tuesday to dete rmine if the fluid collection has matured versus resolved. Okay to eat now that his appetite is improving. Will be here over the weekend and follow clinically as well. If the patient appears to worsen, will place percutaneous drainage catheter.
[2019-01-19] MEDS: D5NS 1,000 ML IV SCH (16:31)
--- NOTE | 2019-01-19 21:42 | Consultation ---
History of Present Illness - Reason for Consult Consult date: 01/19/19 pelvic collection Requesting physician: LUCÍA GAYTAN - History of Present Illness 49 y/o male with history of recent ruptured appendicitis s/p lap appendectomy on 01/01/2019 admitted on 01/18/2019 due to 24h-history of worsening abdominal pain associated with nausea. Denies fever, chill. Denies fever, vomiting or diarrhea. Abdominal pain is 10 of 10, constant, nonradiating, localized to the right side of the pelvis and radiated to the rectum with pressure. His appendix was found enlarged, thickened with necrotic distal portion. Purulent fluid in the abdomen. He was given an augmentin prescription but did not fill it out. In the ED, temp 99.8-100.1, HR 116, R 14, BP 118/78, O2 sat 100%. WBC 13.2. Creat 1. UA negative. Blood cultures 01/18/[address] Abdomen/Pelvis shows 5.5x6.7x5.3 cm rim-enhancing fluid collection in the central pelvis, partial S YRIS, wall thickening distal sigmoid and rectum. Review of Systems: General: no fever, no chills, no malaise Cutaneous: no rash, pruritus Head: no headaches or injury Eyes: no changes in vision, eye pain, double vision Ears: no ear pain, ear discharge, ringing or hearing loss Nose: no nose bleeding, stuffiness Mouth & throat: no bleeding gums, no horseness, no dental problems, or swollen glands Neck: no pain, node enlargement/lumps, tyroid enlargement or tenderness Respiratory: no SOB, no cough, no MARRERO, no wheezing, no sputum, no hemoptysis, no pleuritic chest pain Cardiovascular: no chest pain, leg edema, cyanosis, MARRERO, orthopnea Musculoskeletal: no edema Gastrointestinal: + abdominal pain, +rectal pain, +nausea, no vomiting, no hematemesis, diarrhea, constipation, melena, bright red blood in stools, fecal incontinence, jaundice Genitourinary/Reproductive: no frequent urination, dysuria, hematuria, incontinence Neurogical: no seizures, no headaches, no weakness, no paresthesias, no loss of speech or vision; no memory loss, no vertigo, no tremors, no numbness Psychiatric: stable mood; no excessive anxiety, sadness or moodiness Past History Past Medical History: No medical history Past Surgical History: appendectomy (lap - 01/01/2019) Social history: denies: smoking, alcohol abuse Family history: no significant family history Medications and Allergies Allergies Allergy/AdvReac Type Severity Reaction Status Date / Time No Known Allergies Allergy Unverified 12/31/18 12:01 Home Medications Medication Instructions Recorded Confirmed Last Taken Type Amoxicillin/K Clav Tab [Augmentin 1 tab PO Q12HR #14 tab 01/03/19 Unknown Rx 875 mg] Active Meds: Active Medications Acetaminophen (Tylenol) 650 mg PO Q4H PRN PRN Reason: Pain MILD(1-3)/Fever >100.5/BLANCAS Last Admin: 01/19/19 21:18 Dose: 650 mg Documented by: Famotidine (Pepcid) 20 mg IV BID CEDRICK Last Admin: 01/19/19 21:18 Dose: 20 mg Documented by: Hydromorphone HCl (Dilaudid) 0.5 mg IV Q3H PRN PRN Reason: Pain , Severe (7-10) Last Admin: 01/19/19 10:14 Dose: 0.5 mg Documented by: Dextrose/Sodium Chloride (D5ns) 1,000 mls @ 75 mls/hr IV DIRECT CEDRICK Last Admin: 01/19/19 16:31 Dose: 75 mls/hr Documented by: Piperacillin Sod/Tazobactam Sod (Zosyn/Ns 4.5gm/100ml) 4.5 gm in 100 mls @ 200 mls/hr IV Q8HR CEDRICK; Protocol Last Admin: 01/19/19 21:18 Dose: 200 mls/hr Documented by: Ondansetron HCl (Zofran) 4 mg IV Q8H PRN PRN Reason: Nausea And Vomiting Last Admin: 01/18/19 22:00 Dose: 4 mg Documented by: Sodium Chloride (Sodium Chloride Flush Syringe 10 Ml) 10 ml IV BID CEDRICK Last Admin: 01/19/19 21:19 Dose: 10 ml Documented by: Sodium Chloride (Sodium Chloride Flush Syringe 10 Ml) 10 ml IV PRN PRN PRN Reason: LINE FLUSH Physical Examination - Physical Exam Narrative exam: General appearance: Alert in NAD pleasant Eyes: anicteric sclerae, moist conjunctivae; no lid-lag; PERRLA HENT: Atraumatic; oropharynx ton Neck: Trachea midline; supple, no thyromegaly or lymphadenopathy Lungs: CTA awa CV: RRR no murmur Abdomen: Soft,+ tenderness in LLQ no rebound Extremities: no edema, cyanosis Skin: Normal temperature, turgor and texture; no rash, ulcers or subcutaneous nodules Psych: Appropriate affect, alert and oriented to person, place and time. Neuro: alert and oriented x 3. Moving all extermities - Constitutional Vitals: Vital Signs Temp Pulse Resp BP Pulse Ox 99.9 F H 100 H 18 118/73 99 01/19/19 16:26 01/19/19 16:26 01/19/19 21:18 01/19/19 16:26 01/19/19 16:26 Temperature -Last 24 Hours Temperature 99.9 F Temperature 99.1 F Temperature 98.1 F Results - Labs CBC & Chem 7: 01/19/19 08:15 01/19/19 08:15 Labs: Abnormal lab results 01/19/19 01/19/19 Range/Units 08:15 08:15 WBC 11.4 H (4.5-11.0) K/mm3 RDW 13.1 L (13.2-15.2) % [place] % (Auto) 10.0 H (0.0-7.3) % [place] # 1.1 H (0.0-0.8) K/mm3 Seg Neutrophils % 75.5 H (40.0-70.0) % Seg Neutrophils # 8.6 H (1.8-7.7) K/mm3 Sodium 134 L (137-145) mmol/L Chloride 97.5 L (98-107) mmol/L Glucose 118 H (75-100) mg/dL Albumin 3.2 L (3.9-5) g/dL Assessment and Plan Cultures: 01/18/2019 blood cultures no growth today Assessment: 49 y/o male with history of recent ruptured appendicitis s/p lap appendectomy on 01/01/2019 admitted on 01/18/2019 due to 24h-history of worsening abdominal pain associated with nausea: 1) Sepsis: present on admission with fever, tachycardia and leukocytosis; likely due to post ruptured appendicitis pelvic abscess. UA negative. Blood cultures 01/18/2019 pending. 2) Post ruptured appendicitis pelvic abscess: His appendix was found enlarged, thickened with necrotic distal portion. Purulent fluid in the abdomen. He was given an augmentin prescription but did not fill it out.CT Abdomen/Pelvis shows 5.5x6.7x5.3 cm rim-enhancing fluid collection in the central pelvis, partial SBO, wall thickening distal sigmoid and rectum. Recommendations: - follow-up blood cultures - IR consult for drainage and send deep cultures - stop zosyn - start cefepime, flagyl and fluconazole Dr Monroy is covering tomorrow Will follow. Lisa Cheema MD Infectious Diseases [facility] M [phone] O [phone]
[2019-01-20] MEDS: MAXIPIME/NS 2 GM/100 ML 2 GM/100 ML BAG IV SCH ×3 (00:38→22:01)
[2019-01-20] MEDS: FLAGYL 500 MG/100 ML 500 MG/100 ML BAG IV SCH ×4 (00:38→22:02)
[2019-01-20] MEDS: ZOFRAN IV PRN ×2 (00:43→08:14)
[2019-01-20 06:54] LABS: Hematocrit 38.1 % (35.5-45.6); Hemoglobin 12.8 gm/dl (11.8-15.2); Mean Corpuscular HGB Conc 34 % (32-34); Mean Corpuscular Volume 84 fl (84-94); Platelet Count 255 K/mm3 (140-440); Red Blood Count 4.55 M/mm3 (3.65-5.03); Red Cell Distribution Width 12.9 % (13.2-15.2)
[2019-01-20 07:12] LABS: BUN/Creatinine Ratio 6; Blood Urea Nitrogen 7 mg/dL (9-20); Hemolysis Index 0
--- NOTE | 2019-01-20 09:07 | Progress Note ---
Assessment and Plan Patient clinically doing. We'll obtain CT scan of the abdomen and pelvis tomorrow. Further recommendations to follow depending upon the scan. Subjective Date of service: 01/20/19 Principal diagnosis: patient with pelvic fluid collection Interval history: Patient clinically improving. His abdominal pain is greatly decreased. Tolerating a liquid diet. Objective - Constitutional Vitals: Vital Signs - 12hr 01/19/19 01/19/19 01/19/19 21:18 22:00 22:42 Temperature 98.7 F Pulse Rate Respiratory 18 20 Rate Respiratory 18 Rate [Abdomen] Blood Pressure 104/54 O2 Sat by Pulse Oximetry 01/19/19 01/19/19 01/19/19 22:54 23:40 23:56 Temperature 97.6 F Pulse Rate 103 H 87 Respiratory 18 20 Rate Respiratory Rate [Abdomen] Blood Pressure O2 Sat by Pulse 97 95 Oximetry 01/20/19 01/20/19 01/20/19 01:19 03:34 06:18 Temperature 98.6 F Pulse Rate 90 Respiratory 18 20 20 Rate Respiratory Rate [Abdomen] Blood Pressure 81/47 90/57 112/62 O2 Sat by Pulse 97 Oximetry General appearance: Present: no acute distress - EENT Eyes: EOM intact ENT: hearing intact - Neck Neck: supple, normal ROM - Respiratory Respiratory effort: normal Extremities: no ischemia - Gastrointestinal General gastrointestinal: Present: soft - Genitourinary Male genitourinary: deferred - Psychiatric Psychiatric: appropriate mood/affect, cooperative - Labs CBC & Chem 7: 01/20/19 06:00 01/20/19 06:00 Labs: Abnormal lab results 01/19/19 01/20/19 01/20/19 Range/Units 08:15 06:00 06:00 RDW 12.9 L (13.2-15.2) % Sodium 134 L (137-145) mmol/L Potassium 3.5 L (3.6-5.0) mmol/L Chloride 97.5 L (98-107) mmol/L BUN 7 L (9-20) mg/dL Glucose 118 H 106 H (75-100) mg/dL Albumin 3.2 L (3.9-5) g/dL Medications & Allergies - Medications Allergies/Adverse Reactions: Allergies No Known Allergies Allergy (Unverified 12/31/18 12:01) Home Medications: Home Medications Medication Instructions Recorded Confirmed Last Taken Type Amoxicillin/K Clav Tab [Augmentin 1 tab PO Q12HR #14 tab 01/03/19 Unknown Rx 875 mg] Active Medications: Generic Name Dose Route Start Last Admin Trade Name Freq PRN Reason Stop Dose Admin Acetaminophen 650 mg 01/18/19 21:24 01/19/19 21:18 Tylenol PO 650 mg Q4H PRN Administration Pain MILD(1-3)/Fever >100.5/BLANCAS Famotidine 20 mg 01/18/19 22:00 01/19/19 21:18 Pepcid IV 20 mg BID CEDRICK Administration Hydromorphone HCl 0.5 mg 01/18/19 21:24 01/19/19 10:14 Dilaudid IV 0.5 mg Q3H PRN Administration Pain , Severe (7-10) Dextrose/Sodium Chloride 1,000 mls @ 75 mls/hr 01/18/19 22:00 01/19/19 16:31 D5ns IV 75 mls/hr DIRECT CEDRICK Administration Cefepime HCl 2 gm in 100 mls @ 200 mls/hr 01/19/19 22:00 01/20/19 00:38 Maxipime/Ns 2 Gm/100 Ml IV 200 mls/hr Q12HR CEDRICK Administration Protocol Metronidazole 500 mg in 100 mls @ 100 mls/hr 01/19/19 22:00 01/20/19 05:30 Flagyl 500 Mg/100 Ml IV 100 mls/hr Q8HR CEDRICK Administration Protocol Fluconazole 200 mg in 100 mls @ 100 mls/hr 01/20/19 10:00 Diflucan IV Q24HR CEDRICK Protocol Ondansetron HCl 4 mg 01/18/19 21:24 01/20/19 08:14 Zofran IV 4 mg Q8H PRN Administration Nausea And Vomiting Sodium Chloride 10 ml 01/18/19 22:00 01/19/19 21:19 Sodium Chloride Flush Syringe 10 Ml IV 10 ml BID CEDRICK Administration Sodium Chloride 10 ml 01/18/19 21:24 Sodium Chloride Flush Syringe 10 Ml IV PRN PRN LINE FLUSH
[2019-01-20] MEDS: PEPCID IV SCH ×2 (10:27→22:02)
--- NOTE | 2019-01-20 10:31 | Progress Note ---
Assessment and Plan Assessment and plan: Pelvic abscess. admitted to Med/Surg patient had acute appendicitis with perforation, peritonitis about 2 weeks ago, had laparoscopic appendectomy and discharged home on Augmentin. Now has pelvicaabscess. he was evaluated by IR. Plan is to repeat CT Abd tomorrow Sepsis due to pelvic abscess, ID Physician following Antibiotics as per ID - Cefepime, Flagyl and Fluconazole. Full code status History Interval history: Patient had appendectomy about 2 weeks ago, now presents with abd pain, diagnosed with pelvic abscess less abd pain Hospitalist Physical - Physical exam Narrative exam: Gen: Not in acute distress, lying in bed,obese HEENT: Normocephalic, atraumatic Neck: supple, no JVD Heart: S1 and S2 reg, no murmurs, rubs or gallop Lungs: Clear, no crackles, no wheeze Abd: soft, mild tender lower abdomen, normal BS Ext: No edema, no clubbing, no cyanosis, Neuro: Awake,alert, oriented x 3, moves all ext, non focal Psych:Normal mood - Constitutional Vitals: Temp Pulse Resp BP Pulse Ox 98.6 F 90 20 112/62 97 01/20/19 06:18 01/20/19 06:18 01/20/19 06:18 01/20/19 06:18 01/20/19 06:18 General appearance: Present: no acute distress, well-nourished Results - Labs CBC & Chem 7: 01/20/19 06:00 01/20/19 06:00 Labs: Laboratory Last Values WBC 8.7 K/mm3 (4.5-11.0) 01/20/19 06:00 RBC 4.55 M/mm3 (3.65-5.03) 01/20/19 06:00 Hgb 12.8 gm/dl (11.8-15.2) 01/20/19 06:00 Hct 38.1 % (35.5-45.6) 01/20/19 06:00 MCV 84 fl (84-94) 01/20/19 06:00 MCH 28 pg (28-32) 01/20/19 06:00 MCHC 34 % (32-34) 01/20/19 06:00 RDW 12.9 % (13.2-15.2) L 01/20/19 06:00 Plt Count 255 K/mm3 (140-440) 01/20/19 06:00 Lymph % (Auto) 13.5 % (13.4-35.0) 01/19/19 08:15 [place] % (Auto) 10.0 % (0.0-7.3) H 01/19/19 08:15 Eos % (Auto) 0.4 % (0.0-4.3) 01/19/19 08:15 Baso % (Auto) 0.6 % (0.0-1.8) 01/19/19 08:15 Lymph # 1.5 K/mm3 (1.2-5.4) 01/19/19 08:15 [place] # 1.1 K/mm3 (0.0-0.8) H 01/19/19 08:15 Eos # 0.0 K/mm3 (0.0-0.4) 01/19/19 08:15 Baso # 0.1 K/mm3 (0.0-0.1) 01/19/19 08:15 Seg Neutrophils % 75.5 % (40.0-70.0) H 01/19/19 08:15 Seg Neutrophils # 8.6 K/mm3 (1.8-7.7) H 01/19/19 08:15 Sodium 140 mmol/L (137-145) 01/20/19 06:00 Potassium 3.5 mmol/L (3.6-5.0) L 01/20/19 06:00 Chloride 101.8 mmol/L (98-107) 01/20/19 06:00 Carbon Dioxide 24 mmol/L (22-30) 01/20/19 06:00 18 mmol/L 01/20/19 06:00 BUN 7 mg/dL (9-20) L 01/20/19 06:00 1.1 mg/dL (0.8-1.5) 01/20/19 06:00 Estimated GFR > 60 ml/min 01/20/19 06:00 6 % 01/20/19 06:00 Glucose 106 mg/dL (75-100) H 01/20/19 06:00 5.9 % (4-6) 01/18/19 14:05 Calcium 9.0 mg/dL (8.4-10.2) 01/20/19 06:00 0.70 mg/dL (0.1-1.2) 01/19/19 08:15 AST 17 units/L (5-40) 01/19/19 08:15 ALT 28 units/L (7-56) 01/19/19 08:15 108 units/L (35-129) 01/19/19 08:15 6.6 g/dL (6.3-8.2) 01/19/19 08:15 3.2 g/dL (3.9-5) L 01/19/19 08:15 0.9 % 01/19/19 08:15 22 units/L (13-60) 01/18/19 14:05 Yellow (Yellow) 01/18/19 18:25 Clear (Clear) 01/18/19 18:25 5.0 (5.0-7.0) 01/18/19 18:25 <15 mg/dl mg/dL (Negative) 01/18/19 18:25 Neg mg/dL (Negative) 01/18/19 18:25 20 mg/dL (Negative) 01/18/19 18:25 Neg (Negative) 01/18/19 18:25 Neg (Negative) 01/18/19 18:25 Neg (Negative) 01/18/19 18:25 < 2.0 mg/dL (<2.0) 01/18/19 18:25 Ur Leukocyte Esterase Neg (Negative) 01/18/19 18:25 3.0 /HPF (0.0-6.0) 01/18/19 18:25 2.0 /HPF (0.0-6.0) 01/18/19 18:25 U Epithel Cells (Auto) < 1.0 /HPF (0-13.0) 01/18/19 18:25 Few /HPF 01/18/19 18:25 Active Medications - Current Medications Current Medications: Generic Name Dose Route Start Last Admin Trade Name Freq PRN Reason Stop Dose Admin Acetaminophen 650 mg 01/18/19 21:24 01/19/19 21:18 Tylenol PO 650 mg Q4H PRN Administration Pain MILD(1-3)/Fever >100.5/BLANCAS Famotidine 20 mg 01/18/19 22:00 01/20/19 10:27 Pepcid IV 20 mg BID CEDRICK Administration Hydromorphone HCl 0.5 mg 01/18/19 21:24 01/19/19 10:14 Dilaudid IV 0.5 mg Q3H PRN Administration Pain , Severe (7-10) Dextrose/Sodium Chloride 1,000 mls @ 75 mls/hr 01/18/19 22:00 01/19/19 16:31 D5ns IV 75 mls/hr DIRECT CEDRICK Administration Cefepime HCl 2 gm in 100 mls @ 200 mls/hr 01/19/19 22:00 01/20/19 10:28 Maxipime/Ns 2 Gm/100 Ml IV 200 mls/hr Q12HR CEDRICK Administration Protocol Metronidazole 500 mg in 100 mls @ 100 mls/hr 01/19/19 22:00 01/20/19 05:30 Flagyl 500 Mg/100 Ml IV 100 mls/hr Q8HR CEDRICK Administration Protocol Fluconazole 200 mg in 100 mls @ 100 mls/hr 01/20/19 10:00 Diflucan IV Q24HR CEDRICK Protocol Ondansetron HCl 4 mg 01/18/19 21:24 01/20/19 08:14 Zofran IV 4 mg Q8H PRN Administration Nausea And Vomiting Sodium Chloride 10 ml 01/18/19 22:00 01/19/19 21:19 Sodium Chloride Flush Syringe 10 Ml IV 10 ml BID CEDRICK Administration Sodium Chloride 10 ml 01/18/19 21:24 Sodium Chloride Flush Syringe 10 Ml IV PRN PRN LINE FLUSH
[2019-01-20] MEDS: SODIUM CHLORIDE FLUSH SYRINGE 10 ML IV SCH ×2 (10:33→22:03)
[2019-01-20] MEDS: D5NS 1,000 ML IV SCH (10:33)
[2019-01-20] MEDS: DIFLUCAN 200 MG/100 ML BAG IV SCH (10:33)
--- NOTE | 2019-01-20 10:57 | Progress Note ---
Assessment and Plan - Patient Problems (1) Pelvic abscess in male Current Visit: Yes Status: Acute Plan to address problem: Pt stable. Pt with post appendicitis fluid collection in pelvic. Appears to be responding well to IV Abx. Await CT tomorrow. Will follow along. Please call with questions. Subjective Date of service: 01/20/19 Patient Reports: Positive: feels better, tolerating liquids well, bowel movement, other (less rectal pressure). Negative: nausea, vomiting Objective Vital Signs - 12hr 01/19/19 01/19/19 01/20/19 23:40 23:56 01:19 Temperature 97.6 F Pulse Rate 87 Respiratory 18 20 18 Rate Blood Pressure 81/47 O2 Sat by Pulse 95 Oximetry 01/20/19 01/20/19 03:34 06:18 Temperature 98.6 F Pulse Rate 90 Respiratory 20 20 Rate Blood Pressure 90/57 112/62 O2 Sat by Pulse 97 Oximetry - General physical appearance no distress, no pain, other (looks well) - Eyes normal occular movement - Respiratory normal expansion, normal respiratory effort - Abdomen soft, not tender, not distended - Labs 01/20/19 06:00 01/20/19 06:00 Diabetes panel 01/20/19 Range/Units 06:00 Sodium 140 (137-145) mmol/L Potassium 3.5 L (3.6-5.0) mmol/L Chloride 101.8 (98-107) mmol/L Carbon Dioxide 24 (22-30) mmol/L BUN 7 L (9-20) mg/dL Creatinine 1.1 (0.8-1.5) mg/dL Glucose 106 H (75-100) mg/dL Calcium 9.0 (8.4-10.2) mg/dL Calcium panel 01/20/19 Range/Units 06:00 Calcium 9.0 (8.4-10.2) mg/dL Pituitary panel 01/20/19 Range/Units 06:00 Sodium 140 (137-145) mmol/L Potassium 3.5 L (3.6-5.0) mmol/L Chloride 101.8 (98-107) mmol/L Carbon Dioxide 24 (22-30) mmol/L BUN 7 L (9-20) mg/dL Creatinine 1.1 (0.8-1.5) mg/dL Glucose 106 H (75-100) mg/dL Calcium 9.0 (8.4-10.2) mg/dL Adrenal panel 01/20/19 Range/Units 06:00 Sodium 140 (137-145) mmol/L Potassium 3.5 L (3.6-5.0) mmol/L Chloride 101.8 (98-107) mmol/L Carbon Dioxide 24 (22-30) mmol/L BUN 7 L (9-20) mg/dL Creatinine 1.1 (0.8-1.5) mg/dL Glucose 106 H (75-100) mg/dL Calcium 9.0 (8.4-10.2) mg/dL
[2019-01-20] MEDS: HEPARIN SUB-Q SCH ×2 (17:20→22:03)
[2019-01-21] MEDS: D5NS 1,000 ML IV SCH ×2 (02:36→22:28)
[2019-01-21] MEDS: FLAGYL 500 MG/100 ML 500 MG/100 ML BAG IV SCH ×3 (05:05→22:30)
[2019-01-21] MEDS: HEPARIN SUB-Q SCH ×3 (05:05→22:31)
[2019-01-21 06:54] LABS: Hematocrit 37.8 % (35.5-45.6); Hemoglobin 12.7 gm/dl (11.8-15.2); Mean Corpuscular HGB Conc 34 % (32-34); Mean Corpuscular Volume 84 fl (84-94); Platelet Count 281 K/mm3 (140-440); Red Blood Count 4.51 M/mm3 (3.65-5.03)
[2019-01-21 06:55] LABS: BUN/Creatinine Ratio 6; Blood Urea Nitrogen 6 mg/dL (9-20); Calcium 9.1 mg/dL (8.4-10.2); Hemolysis Index 2
[2019-01-21] MEDS: MAXIPIME/NS 2 GM/100 ML 2 GM/100 ML BAG IV SCH ×2 (09:22→22:29)
[2019-01-21] MEDS: PEPCID IV SCH ×2 (09:22→22:31)
[2019-01-21] MEDS: DIFLUCAN 200 MG/100 ML BAG IV SCH (09:23)
--- NOTE | 2019-01-21 15:13 | Progress Note ---
Assessment and Plan Assessment and plan: Pelvic abscess. admitted to Med/Surg patient had acute appendicitis with perforation, peritonitis about 2 weeks ago, had laparoscopic appendectomy and discharged home on Augmentin. Now has pelvic abscess. he was evaluated by IR. Plan is to repeat CT Abd. If abscess persists drainage needed and if resolving, will continue conservative management with Sepsis due to pelvic abscess, ID Physician following Antibiotics as per ID - Cefepime, Flagyl and Fluconazole. Hypokalemia. Repeat and recheck Full code status History Interval history: Patient had appendectomy about 2 weeks ago, now presents with abd pain, diagnosed with pelvic abscess less abd pain Hospitalist Physical - Physical exam Narrative exam: Gen: Not in acute distress, lying in bed,obese HEENT: Normocephalic, atraumatic Neck: supple, no JVD Heart: S1 and S2 reg, no murmurs, rubs or gallop Lungs: Clear, no crackles, no wheeze Abd: soft, mild tender lower abdomen, normal BS Ext: No edema, no clubbing, no cyanosis, Neuro: Awake,alert, oriented x 3, moves all ext, non focal Psych:Normal mood - Constitutional Vitals: Temp Pulse Resp BP Pulse Ox 98.0 F 80 16 92/60 98 01/21/19 11:59 01/21/19 11:59 01/21/19 11:59 01/21/19 11:59 01/21/19 11:59 General appearance: Present: no acute distress, obese Results - Labs CBC & Chem 7: 01/21/19 05:47 01/21/19 05:47 Labs: Laboratory Last Values WBC 8.7 K/mm3 (4.5-11.0) 01/21/19 05:47 RBC 4.51 M/mm3 (3.65-5.03) 01/21/19 05:47 Hgb 12.7 gm/dl (11.8-15.2) 01/21/19 05:47 Hct 37.8 % (35.5-45.6) 01/21/19 05:47 MCV 84 fl (84-94) 01/21/19 05:47 MCH 28 pg (28-32) 01/21/19 05:47 MCHC 34 % (32-34) 01/21/19 05:47 RDW 13.0 % (13.2-15.2) L 01/21/19 05:47 Plt Count 281 K/mm3 (140-440) 01/21/19 05:47 Lymph % (Auto) 13.5 % (13.4-35.0) 01/19/19 08:15 [place] % (Auto) 10.0 % (0.0-7.3) H 01/19/19 08:15 Eos % (Auto) 0.4 % (0.0-4.3) 01/19/19 08:15 Baso % (Auto) 0.6 % (0.0-1.8) 01/19/19 08:15 Lymph # 1.5 K/mm3 (1.2-5.4) 01/19/19 08:15 [place] # 1.1 K/mm3 (0.0-0.8) H 01/19/19 08:15 Eos # 0.0 K/mm3 (0.0-0.4) 01/19/19 08:15 Baso # 0.1 K/mm3 (0.0-0.1) 01/19/19 08:15 Seg Neutrophils % 75.5 % (40.0-70.0) H 01/19/19 08:15 Seg Neutrophils # 8.6 K/mm3 (1.8-7.7) H 01/19/19 08:15 Sodium 143 mmol/L (137-145) 01/21/19 05:47 Potassium 3.5 mmol/L (3.6-5.0) L 01/21/19 05:47 Chloride 105.9 mmol/L (98-107) 01/21/19 05:47 Carbon Dioxide 24 mmol/L (22-30) 01/21/19 05:47 17 mmol/L 01/21/19 05:47 BUN 6 mg/dL (9-20) L 01/21/19 05:47 1.0 mg/dL (0.8-1.5) 01/21/19 05:47 Estimated GFR > 60 ml/min 01/21/19 05:47 6 % 01/21/19 05:47 Glucose 100 mg/dL (75-100) 01/21/19 05:47 5.9 % (4-6) 01/18/19 14:05 Calcium 9.1 mg/dL (8.4-10.2) 01/21/19 05:47 0.70 mg/dL (0.1-1.2) 01/19/19 08:15 AST 17 units/L (5-40) 01/19/19 08:15 ALT 28 units/L (7-56) 01/19/19 08:15 108 units/L (35-129) 01/19/19 08:15 6.6 g/dL (6.3-8.2) 01/19/19 08:15 3.2 g/dL (3.9-5) L 01/19/19 08:15 0.9 % 01/19/19 08:15 22 units/L (13-60) 01/18/19 14:05 Yellow (Yellow) 01/18/19 18:25 Clear (Clear) 01/18/19 18:25 5.0 (5.0-7.0) 01/18/19 18:25 <15 mg/dl mg/dL (Negative) 01/18/19 18:25 Neg mg/dL (Negative) 01/18/19 18:25 20 mg/dL (Negative) 01/18/19 18:25 Neg (Negative) 01/18/19 18:25 Neg (Negative) 01/18/19 18:25 Neg (Negative) 01/18/19 18:25 < 2.0 mg/dL (<2.0) 01/18/19 18:25 Ur Leukocyte Esterase Neg (Negative) 01/18/19 18:25 3.0 /HPF (0.0-6.0) 01/18/19 18:25 2.0 /HPF (0.0-6.0) 01/18/19 18:25 U Epithel Cells (Auto) < 1.0 /HPF (0-13.0) 01/18/19 18:25 Few /HPF 01/18/19 18:25 Active Medications - Current Medications Current Medications: Generic Name Dose Route Start Last Admin Trade Name Freq PRN Reason Stop Dose Admin Acetaminophen 650 mg 01/18/19 21:24 01/19/19 21:18 Tylenol PO 650 mg Q4H PRN Administration Pain MILD(1-3)/Fever >100.5/BLANCAS Famotidine 20 mg 01/18/19 22:00 01/21/19 09:22 Pepcid IV 20 mg BID CEDRICK Administration Heparin Sodium (Porcine) 5,000 unit 01/20/19 15:00 01/21/19 14:29 Heparin SUB-Q 5,000 unit Q8HR CEDRICK Administration Hydromorphone HCl 0.5 mg 01/18/19 21:24 01/19/19 10:14 Dilaudid IV 0.5 mg Q3H PRN Administration Pain , Severe (7-10) Dextrose/Sodium Chloride 1,000 mls @ 75 mls/hr 01/18/19 22:00 01/21/19 02:36 D5ns IV 75 mls/hr DIRECT CEDRICK Administration Cefepime HCl 2 gm in 100 mls @ 200 mls/hr 01/19/19 22:00 01/21/19 09:22 Maxipime/Ns 2 Gm/100 Ml IV 200 mls/hr Q12HR CEDRICK Administration Protocol Metronidazole 500 mg in 100 mls @ 100 mls/hr 01/19/19 22:00 01/21/19 14:28 Flagyl 500 Mg/100 Ml IV 100 mls/hr Q8HR CEDRICK Administration Protocol Fluconazole 200 mg in 100 mls @ 100 mls/hr 01/20/19 10:00 01/21/19 09:23 Diflucan IV 100 mls/hr Q24HR CEDRICK Administration Protocol Ondansetron HCl 4 mg 01/18/19 21:24 01/20/19 08:14 Zofran IV 4 mg Q8H PRN Administration Nausea And Vomiting Potassium Chloride 40 meq 01/21/19 11:00 K-Dur PO 01/21/19 17:01 Q6H CEDRICK Sodium Chloride 10 ml 01/18/19 22:00 01/20/19 22:03 Sodium Chloride Flush Syringe 10 Ml IV 10 ml BID CEDRICK Administration Sodium Chloride 10 ml 01/18/19 21:24 Sodium Chloride Flush Syringe 10 Ml IV PRN PRN LINE FLUSH
--- NOTE | 2019-01-21 18:20 | Cat Scan Report ---
PROCEDURE: CT ABDOMEN PELVIS W CON TECHNIQUE: Computerized axial tomography of the abdomen and pelvis was performed after the administr ation of IV iodinated nonionic contrast. CT DOSE LENGTH PRODUCT: 4965.3 mGycm HISTORY: pelvic fluid collection COMPARISONS: 01/18/2019 . FINDINGS: Visualized lower thorax: No significant abnormality. Liver: Normal size and attenuation. Spleen: Normal size and attenuation. Gallbladder and biliary system: Normal. Pancreas: Normal. Adrenals: Normal. Kidneys: Normal. GI tract: There is inflammation of the rectosigmoid colon, likely secondary to abutting abscess. Dis gaetano ileal loops in the pelvis are also inflamed, with significant wall thickening and adjacent strand ing. No evidence of bowel obstruction. Lymph nodes and mesentery: Normal. Vasculature: Normal.. Bladder: Normal. Reproductive organs: Normal. Peritoneum: There is again seen a lobular peripherally enhancing fluid collection in the pelvis, whic h does not appear significantly changed compared to the prior study. Musculoskeletal structures: No significant abnormality. Other: None. IMPRESSION: Stable abscess in the pelvis, which does not appear significantly changed in size compared to the kaya or study. There is inflammation of the abutting the rectosigmoid colon and distal small bowel loops, likely secondary to the adjacent abscess. No evidence of bowel obstruction This document is electronically signed by Destiny Guajardo MD., January 21 2019 06:18:00 PM ET
[2019-01-21] MEDS: K-DUR PO SCH ×2 (19:37→19:46)
[2019-01-21] MEDS: SODIUM CHLORIDE FLUSH SYRINGE 10 ML IV SCH ×2 (19:46→22:31)
[2019-01-22] MEDS: K-DUR PO SCH (01:54)
[2019-01-22] MEDS: FLAGYL 500 MG/100 ML 500 MG/100 ML BAG IV SCH (05:37)
[2019-01-22] MEDS: HEPARIN SUB-Q SCH ×3 (05:37→21:41)
[2019-01-22 06:10] LABS: Hematocrit 40.1 % (35.5-45.6); Hemoglobin 13.5 gm/dl (11.8-15.2); Mean Corpuscular HGB Conc 34 % (32-34); Mean Corpuscular Volume 84 fl (84-94); Platelet Count 297 K/mm3 (140-440); Red Blood Count 4.76 M/mm3 (3.65-5.03); Red Cell Distribution Width 13.3 % (13.2-15.2)
[2019-01-22 06:33] LABS: BUN/Creatinine Ratio 7; Blood Urea Nitrogen 7 mg/dL (9-20); Calcium 8.5 mg/dL (8.4-10.2); Hemolysis Index 6
[2019-01-22] MEDS: PEPCID IV SCH ×2 (09:11→21:40)
[2019-01-22] MEDS: DIFLUCAN 200 MG/100 ML BAG IV SCH (09:14)
[2019-01-22] MEDS: MAXIPIME/NS 2 GM/100 ML 2 GM/100 ML BAG IV SCH ×2 (09:14→21:40)
--- NOTE | 2019-01-22 09:15 | Progress Note ---
Assessment and Plan - Patient Problems (1) Pelvic abscess in male Current Visit: Yes Status: Acute Plan to address problem: Pt stable. Pt with post appendicitis fluid collection in pelvic. Appears to be responding well to IV Abx. Reviewed latest CT. Fluid collection persists. Await IR opinion. Hopefully, they will be able to drain it. I think that will help in the resolution of this issue. Will follow along. Please call with questions. Subjective Date of service: 01/22/19 Patient Reports: Positive: feels better, pain is less Objective Vital Signs - 12hr 01/21/19 01/21/19 01/22/19 21:24 22:00 01:00 Temperature 98.2 F Pulse Rate 81 Respiratory 18 18 Rate Respiratory 16 Rate [Abdomen] Blood Pressure 111/67 O2 Sat by Pulse 98 Oximetry 01/22/19 06:02 Temperature 98.1 F Pulse Rate 77 Respiratory 20 Rate Respiratory Rate [Abdomen] Blood Pressure 109/74 O2 Sat by Pulse 97 Oximetry - General physical appearance no distress, no pain - Respiratory normal expansion, normal respiratory effort - Psychiatric oriented to time, oriented to person, oriented to place, speech is normal, me brittani intact - Labs 01/22/19 05:57 01/22/19 05:57 Diabetes panel 01/22/19 Range/Units 05:57 Sodium 144 (137-145) mmol/L Potassium 4.1 (3.6-5.0) mmol/L Chloride 107.3 H (98-107) mmol/L Carbon Dioxide 25 (22-30) mmol/L BUN 7 L (9-20) mg/dL Creatinine 1.0 (0.8-1.5) mg/dL Glucose 103 H (75-100) mg/dL Calcium 8.5 (8.4-10.2) mg/dL Calcium panel 01/22/19 Range/Units 05:57 Calcium 8.5 (8.4-10.2) mg/dL Pituitary panel 01/22/19 Range/Units 05:57 Sodium 144 (137-145) mmol/L Potassium 4.1 (3.6-5.0) mmol/L Chloride 107.3 H (98-107) mmol/L Carbon Dioxide 25 (22-30) mmol/L BUN 7 L (9-20) mg/dL Creatinine 1.0 (0.8-1.5) mg/dL Glucose 103 H (75-100) mg/dL Calcium 8.5 (8.4-10.2) mg/dL Adrenal panel 01/22/19 Range/Units 05:57 Sodium 144 (137-145) mmol/L Potassium 4.1 (3.6-5.0) mmol/L Chloride 107.3 H (98-107) mmol/L Carbon Dioxide 25 (22-30) mmol/L BUN 7 L (9-20) mg/dL Creatinine 1.0 (0.8-1.5) mg/dL Glucose 103 H (75-100) mg/dL Calcium 8.5 (8.4-10.2) mg/dL - Imaging CT scan - abdomen: report reviewed, image reviewed CT scan - pelvis: report reviewed, image reviewed
--- NOTE | 2019-01-22 09:30 | Progress Note ---
Assessment and Plan Cultures: 01/18/2019 blood cultures no growth 01/18/2019 urine: no growth Assessment: 49 y/o male with history of recent ruptured appendicitis s/p lap appendectomy on 01/01/2019 admitted on 01/18/2019 due to 24h-history of worsening abdominal pain associated with nausea: 1) Sepsis: Resolved: likely due to post ruptured appendicitis pelvic abscess. UA negative. Urine culture no growth. Blood cultures no growth. 2) Post ruptured appendicitis pelvic abscess: His appendix was found enlarged, thickened with necrotic distal portion. Purulent fluid in the abdomen. He was given an augmentin prescription but did not fill it out.CT Abdomen/Pelvis shows 5.5x6.7x5.3 cm rim-enhancing fluid collection in the central pelvis, partial SBO, wall thickening distal sigmoid and rectum. Repeat CT 01/21 shows stable abscess in the pelvis. Fluid collection persists. Recommendations: - follow-up blood cultures - Await IR opinion on drainage, if so please send deep cultures -Continue Cefepime 2 gms IV every 12 hours, D4 -Switch to Fluconazole 200mg PO every 24 hours, D3 -Switch to Flagyl 500 mg PO every 8 hours, D4 [facility] M: [id number] O:[phone] Subjective Date of service: 01/22/19 Principal diagnosis: patient with pelvic fluid collection Interval history: Patient seen and examined. No generalized pain or weakness reported. No SOB. no fevers. Objective - Exam Narrative Exam: General appearance: Awake. Alert. no acute distress Eyes: anicteric sclerae, moist conjunctivae; no lid-lag; PERRLA HENT: Atraumatic; oropharynx ton Neck: Trachea midline; supple, no thyromegaly or lymphadenopathy Lungs: CTA awa CV: RRR no murmur Abdomen: Soft,+ tenderness in LLQ no rebound Extremities: no edema, cyanosis Skin: Normal temperature, turgor and texture; no rash, ulcers or subcutaneous nodules Psych: Appropriate affect, alert and oriented to person, place and time. Neuro: alert and oriented x 3. Moving all extermities - Constitutional Vitals: Vital Signs Temp Pulse Resp BP Pulse Ox 98.1 F 77 20 109/74 97 01/22/19 06:02 01/22/19 06:02 01/22/19 06:02 01/22/19 06:02 01/22/19 06:02 Temperature -Last 24 Hours Temperature 98.1 F Temperature 98.2 F Temperature 98.2 F Temperature 98.0 F - Labs CBC & Chem 7: 01/22/19 05:57 01/22/19 05:57 Labs: Abnormal lab results 01/22/19 Range/Units 05:57 Chloride 107.3 H (98-107) mmol/L BUN 7 L (9-20) mg/dL Glucose 103 H (75-100) mg/dL
[2019-01-22] MEDS ORDERED: SUBLIMAZE IV ONE ×2 (12:53→16:00)
[2019-01-22] MEDS ORDERED: VERSED IV ONE ×2 (12:53→13:04)
[2019-01-22] MEDS ORDERED: SUBLIMAZE ONE ×2 (13:04→15:31)
--- NOTE | 2019-01-22 13:17 | Progress Note ---
Assessment and Plan - Patient Problems (1) Abdominal pain Current Visit: Yes Status: Acute Plan to address problem: Secondary toCSSstatus post appendectomy 2 weeks ago. Follow-up CT scan showed no significant improvement. scheduled to have have drainage by interventional radiology today. (2) Appendix abscess Current Visit: Yes Status: Acute Plan to address problem: Status post surgical correction. (3) DVT prophylaxis Current Visit: Yes Status: Acute (4) Appendicitis, acute, with generalized peritonitis Current Visit: No Status: Acute Qualifiers: Appendicitis gangrene presence: with gangrene Appendicitis perforation presence: with perforation Appendicitis abscess presence: without abscess Qualified Code(s): K35.20 - Acute appendicitis with generalized peritonitis, without abscess; K35.891 - Other acute appendicitis without perforation, with gangrene History Interval history: patient is without any new concerns today. Pain very well controlled. Long discussion about CT findings. Essentially unchanged. Awaiting interventional radiology. Hospitalist Physical - Constitutional Vitals: Temp Pulse Resp BP Pulse Ox 98.1 F 77 20 109/74 97 01/22/19 06:02 01/22/19 06:02 01/22/19 06:02 01/22/19 06:02 01/22/19 06:02 General appearance: Present: no acute distress, obese - EENT Eyes: Present: PERRL, EOM intact ENT: hearing intact, clear oral mucosa, dentition normal - Neck Neck: Present: supple, normal ROM - Respiratory Respiratory: bilateral: CTA - Cardiovascular Rhythm: regular - Extremities Extremities: no ischemia, pulses intact, pulses symmetrical, No edema, normal temperature, normal color Peripheral Pulses: within normal limits - Abdominal General gastrointestinal: soft, tender, non-distended, normal bowel sounds, no hepatomegaly, no splenomegaly, no mass - Integumentary Integumentary: Present: clear, warm, dry - Psychiatric Psychiatric: appropriate mood/affect, intact judgment & insight, memory intact - Neurologic Neurologic: CNII-XII intact, focal deficits, moves all extremities Results - Labs CBC & Chem 7: 01/22/19 05:57 01/22/19 05:57 Labs: Laboratory Last Values WBC 5.9 K/mm3 (4.5-11.0) 01/22/19 05:57 RBC 4.76 M/mm3 (3.65-5.03) 01/22/19 05:57 Hgb 13.5 gm/dl (11.8-15.2) 01/22/19 05:57 Hct 40.1 % (35.5-45.6) 01/22/19 05:57 MCV 84 fl (84-94) 01/22/19 05:57 MCH 28 pg (28-32) 01/22/19 05:57 MCHC 34 % (32-34) 01/22/19 05:57 RDW 13.3 % (13.2-15.2) 01/22/19 05:57 Plt Count 297 K/mm3 (140-440) 01/22/19 05:57 Lymph % (Auto) 13.5 % (13.4-35.0) 01/19/19 08:15 [place] % (Auto) 10.0 % (0.0-7.3) H 01/19/19 08:15 Eos % (Auto) 0.4 % (0.0-4.3) 01/19/19 08:15 Baso % (Auto) 0.6 % (0.0-1.8) 01/19/19 08:15 Lymph # 1.5 K/mm3 (1.2-5.4) 01/19/19 08:15 [place] # 1.1 K/mm3 (0.0-0.8) H 01/19/19 08:15 Eos # 0.0 K/mm3 (0.0-0.4) 01/19/19 08:15 Baso # 0.1 K/mm3 (0.0-0.1) 01/19/19 08:15 Seg Neutrophils % 75.5 % (40.0-70.0) H 01/19/19 08:15 Seg Neutrophils # 8.6 K/mm3 (1.8-7.7) H 01/19/19 08:15 Sodium 144 mmol/L (137-145) 01/22/19 05:57 Potassium 4.1 mmol/L (3.6-5.0) 01/22/19 05:57 Chloride 107.3 mmol/L (98-107) H 01/22/19 05:57 Carbon Dioxide 25 mmol/L (22-30) 01/22/19 05:57 16 mmol/L 01/22/19 05:57 BUN 7 mg/dL (9-20) L 01/22/19 05:57 1.0 mg/dL (0.8-1.5) 01/22/19 05:57 Estimated GFR > 60 ml/min 01/22/19 05:57 7 % 01/22/19 05:57 Glucose 103 mg/dL (75-100) H 01/22/19 05:57 5.9 % (4-6) 01/18/19 14:05 Calcium 8.5 mg/dL (8.4-10.2) 01/22/19 05:57 0.70 mg/dL (0.1-1.2) 01/19/19 08:15 AST 17 units/L (5-40) 01/19/19 08:15 ALT 28 units/L (7-56) 01/19/19 08:15 108 units/L (35-129) 01/19/19 08:15 6.6 g/dL (6.3-8.2) 01/19/19 08:15 3.2 g/dL (3.9-5) L 01/19/19 08:15 0.9 % 01/19/19 08:15 22 units/L (13-60) 01/18/19 14:05 Yellow (Yellow) 01/18/19 18:25 Clear (Clear) 01/18/19 18:25 5.0 (5.0-7.0) 01/18/19 18:25 <15 mg/dl mg/dL (Negative) 01/18/19 18:25 Neg mg/dL (Negative) 01/18/19 18:25 20 mg/dL (Negative) 01/18/19 18:25 Neg (Negative) 01/18/19 18:25 Neg (Negative) 01/18/19 18:25 Neg (Negative) 01/18/19 18:25 < 2.0 mg/dL (<2.0) 01/18/19 18:25 Ur Leukocyte Esterase Neg (Negative) 01/18/19 18:25 3.0 /HPF (0.0-6.0) 01/18/19 18:25 2.0 /HPF (0.0-6.0) 01/18/19 18:25 U Epithel Cells (Auto) < 1.0 /HPF (0-13.0) 01/18/19 18:25 Few /HPF 01/18/19 18:25 Active Medications - Current Medications Current Medications: Generic Name Dose Route Start Last Admin Trade Name Elvie PRN Reason Stop Dose Admin Acetaminophen 650 mg 01/18/19 21:24 01/19/19 21:18 Tylenol PO 650 mg Q4H PRN Administration Pain MILD(1-3)/Fever >100.5/BLANCAS Famotidine 20 mg 01/18/19 22:00 01/22/19 09:11 Pepcid IV 20 mg BID CEDRICK Administration Heparin Sodium (Porcine) 5,000 unit 01/20/19 15:00 01/22/19 05:37 Heparin SUB-Q 5,000 unit Q8HR CEDRICK Administration Hydromorphone HCl 0.5 mg 01/18/19 21:24 01/19/19 10:14 Dilaudid IV 0.5 mg Q3H PRN Administration Pain , Severe (7-10) Dextrose/Sodium Chloride 1,000 mls @ 75 mls/hr 01/18/19 22:00 01/21/19 22:28 D5ns IV 75 mls/hr DIRECT CEDRICK Administration Cefepime HCl 2 gm in 100 mls @ 200 mls/hr 01/19/19 22:00 01/22/19 09:14 Maxipime/Ns 2 Gm/100 Ml IV 200 mls/hr Q12HR CEDRICK Administration Protocol Metronidazole 500 mg in 100 mls @ 100 mls/hr 01/19/19 22:00 01/22/19 05:37 Flagyl 500 Mg/100 Ml IV 100 mls/hr Q8HR CEDRICK Administration Protocol Fluconazole 200 mg in 100 mls @ 100 mls/hr 01/20/19 10:00 01/22/19 09:14 Diflucan IV 100 mls/hr Q24HR CEDRICK Administration Protocol Ondansetron HCl 4 mg 01/18/19 21:24 01/20/19 08:14 Zofran IV 4 mg Q8H PRN Administration Nausea And Vomiting Sodium Chloride 10 ml 01/18/19 22:00 01/21/19 22:31 Sodium Chloride Flush Syringe 10 Ml IV 10 ml BID CEDRICK Administration Sodium Chloride 10 ml 01/18/19 21:24 Sodium Chloride Flush Syringe 10 Ml IV PRN PRN LINE FLUSH
[2019-01-22] MEDS ORDERED: XYLOCAINE 1% 20 mL ONE (15:27)
[2019-01-22] MEDS ORDERED: XYLOCAINE 1%/ EPI 1:100,000 INFILTRATI ONE (15:28)
--- NOTE | 2019-01-22 16:28 | Post Operative Note ---
Date of procedure: 01/22/19 Pre-op diagnosis: Pelvic collection Post-op diagnosis: same Findings: 20 mL purulent material removed and sent for culture Procedure: CT guided transgluteal aspiration of the pelvic fluid collection Anesthesia: local (w/ conscious sedation) Surgeon: GORAN VILLAREAL Estimated blood loss: minimal Condition: stable Disposition: floor
[2019-01-22] MEDS: FLAGYL PO SCH ×2 (17:35→21:37)
[2019-01-22] MEDS: D5NS 1,000 ML IV SCH (19:54)
[2019-01-22] MEDS: SODIUM CHLORIDE FLUSH SYRINGE 10 ML IV SCH ×2 (20:07→21:41)
[2019-01-23] MEDS: FLAGYL PO SCH ×3 (05:01→21:11)
[2019-01-23] MEDS: HEPARIN SUB-Q SCH ×3 (06:57→21:22)
[2019-01-23] MEDS: D5NS 1,000 ML IV SCH (08:57)
[2019-01-23] MEDS: DIFLUCAN PO SCH (09:44)
--- NOTE | 2019-01-23 09:44 | Progress Note ---
Assessment and Plan Cultures: 01/18/2019 blood cultures no growth 01/18/2019 urine: no growth 01/22/2019 surgical culture: in progress Assessment: 49 y/o male with history of recent ruptured appendicitis s/p lap appendectomy on 01/01/2019 admitted on 01/18/2019 due to 24h-history of worsening abdominal pain associated with nausea: 1) Sepsis: Resolved: likely due to post ruptured appendicitis pelvic abscess. UA negative. Urine culture no growth. Blood cultures no growth. 2) Post ruptured appendicitis pelvic abscess: His appendix was found enlarged, thickened with necrotic distal portion. Purulent fluid in the abdomen. He was given an augmentin prescription but did not fill it out.CT Abdomen/Pelvis shows 5.5x6.7x5.3 cm rim-enhancing fluid collection in the central pelvis, partial SBO, wall thickening distal sigmoid and rectum. Repeat CT 01/21 shows stable abscess in the pelvis. Fluid collection persists. s/p CT guided transgluteal aspiration of the pelvic fluid collection 01/22/19. Surgical cultures in progress Recommendations: - follow-up surgical cultures -Continue Cefepime 2 gms IV every 12 hours, D5 -Continue Fluconazole 200mg PO every 24 hours, D4 -Continue Flagyl 500 mg PO every 8 hours, D5 -Ideally wait for culture results prior to discharging home [facility] M: [id number] O:[phone] Subjective Date of service: 01/23/19 Principal diagnosis: patient with pelvic fluid collection Interval history: Patient seen and examined. No generalized pain or weakness reported. No SOB. no fevers. Objective - Exam Narrative Exam: General appearance: Awake. Alert. no acute distress Eyes: anicteric sclerae, moist conjunctivae; no lid-lag; PERRLA HENT: Atraumatic; oropharynx clear Neck: Trachea midline; supple, no thyromegaly or lymphadenopathy Lungs: CTA awa CV: RRR no murmur Abdomen: Soft, no tenderness, R gluteal dressing c/d/i Extremities: no edema, cyanosis Skin: Normal temperature, turgor and texture; no rash, ulcers or subcutaneous nodules Psych: Appropriate affect, alert and oriented to person, place and time. Neuro: alert and oriented x 3. Moving all extremities - Constitutional Vitals: Vital Signs Temp Pulse Resp BP Pulse Ox 98.0 F 75 20 98/59 100 01/22/19 23:59 01/22/19 23:59 01/22/19 23:59 01/22/19 23:59 01/23/19 09:26 Temperature -Last 24 Hours Temperature 98.0 F Temperature 98.1 F Temperature 98.0 F - Labs CBC & Chem 7: 01/22/19 05:57 01/22/19 05:57
[2019-01-23] MEDS: PEPCID IV SCH (09:45)
[2019-01-23] MEDS: SODIUM CHLORIDE FLUSH SYRINGE 10 ML IV SCH ×2 (09:49→21:11)
--- NOTE | 2019-01-23 11:17 | Progress Note ---
Assessment and Plan Assessment and plan: Sepsis: Resolved: likely due to post ruptured appendicitis pelvic abscess. UA negative. Urine culture no growth. Blood cultures no growth. Post ruptured appendicitis pelvic abscess: His appendix was found enlarged, thickened with necrotic distal portion. Purulent fluid in the abdomen. He was given an augmentin prescription but did not fill it out.CT Abdomen/Pelvis shows 5.5x6.7x5.3 cm rim-enhancing fluid collection in the central pelvis, partial SBO, wall thickening distal sigmoid and rectum. Repeat CT 01/21 shows stable abscess in the pelvis. Fluid collection persists. s/p CT guided transgluteal aspiration of the pelvic fluid collection 01/22/19. Surgical cultures in progress. Continue Cefepime 2 gms IV every 12 hours, Fluconazole 200mg PO every 24 hours, Flagyl 500 mg PO every 8 hours History Interval history: No new issues overnight. Hospitalist Physical - Constitutional Vitals: Temp Pulse Resp BP Pulse Ox 98.0 F 75 20 98/59 100 01/22/19 23:59 01/22/19 23:59 01/22/19 23:59 01/22/19 23:59 01/23/19 09:26 General appearance: Present: no acute distress, obese - EENT Eyes: Present: PERRL, EOM intact ENT: hearing intact, clear oral mucosa, dentition normal - Neck Neck: Present: supple, normal ROM - Respiratory Respiratory effort: normal Respiratory: bilateral: CTA - Cardiovascular Rhythm: regular Heart Sounds: Present: S1 & S2. Absent: gallop, rub - Extremities Extremities: no ischemia, No edema, Full ROM - Abdominal General gastrointestinal: soft, non-tender, non-distended, normal bowel sounds - Integumentary Integumentary: Present: clear, warm, dry - Neurologic Neurologic: CNII-XII intact, moves all extremities Results - Labs CBC & Chem 7: 01/22/19 05:57 01/22/19 05:57 Labs: Laboratory Last Values WBC 5.9 K/mm3 (4.5-11.0) 01/22/19 05:57 RBC 4.76 M/mm3 (3.65-5.03) 01/22/19 05:57 Hgb 13.5 gm/dl (11.8-15.2) 01/22/19 05:57 Hct 40.1 % (35.5-45.6) 01/22/19 05:57 MCV 84 fl (84-94) 01/22/19 05:57 MCH 28 pg (28-32) 01/22/19 05:57 MCHC 34 % (32-34) 01/22/19 05:57 RDW 13.3 % (13.2-15.2) 01/22/19 05:57 Plt Count 297 K/mm3 (140-440) 01/22/19 05:57 Lymph % (Auto) 13.5 % (13.4-35.0) 01/19/19 08:15 [place] % (Auto) 10.0 % (0.0-7.3) H 01/19/19 08:15 Eos % (Auto) 0.4 % (0.0-4.3) 01/19/19 08:15 Baso % (Auto) 0.6 % (0.0-1.8) 01/19/19 08:15 Lymph # 1.5 K/mm3 (1.2-5.4) 01/19/19 08:15 [place] # 1.1 K/mm3 (0.0-0.8) H 01/19/19 08:15 Eos # 0.0 K/mm3 (0.0-0.4) 01/19/19 08:15 Baso # 0.1 K/mm3 (0.0-0.1) 01/19/19 08:15 Seg Neutrophils % 75.5 % (40.0-70.0) H 01/19/19 08:15 Seg Neutrophils # 8.6 K/mm3 (1.8-7.7) H 01/19/19 08:15 Sodium 144 mmol/L (137-145) 01/22/19 05:57 Potassium 4.1 mmol/L (3.6-5.0) 01/22/19 05:57 Chloride 107.3 mmol/L (98-107) H 01/22/19 05:57 Carbon Dioxide 25 mmol/L (22-30) 01/22/19 05:57 16 mmol/L 01/22/19 05:57 BUN 7 mg/dL (9-20) L 01/22/19 05:57 1.0 mg/dL (0.8-1.5) 01/22/19 05:57 Estimated GFR > 60 ml/min 01/22/19 05:57 7 % 01/22/19 05:57 Glucose 103 mg/dL (75-100) H 01/22/19 05:57 5.9 % (4-6) 01/18/19 14:05 Calcium 8.5 mg/dL (8.4-10.2) 01/22/19 05:57 0.70 mg/dL (0.1-1.2) 01/19/19 08:15 AST 17 units/L (5-40) 01/19/19 08:15 ALT 28 units/L (7-56) 01/19/19 08:15 108 units/L (35-129) 01/19/19 08:15 6.6 g/dL (6.3-8.2) 01/19/19 08:15 3.2 g/dL (3.9-5) L 01/19/19 08:15 0.9 % 01/19/19 08:15 22 units/L (13-60) 01/18/19 14:05 Yellow (Yellow) 01/18/19 18:25 Clear (Clear) 01/18/19 18:25 5.0 (5.0-7.0) 01/18/19 18:25 <15 mg/dl mg/dL (Negative) 01/18/19 18:25 Neg mg/dL (Negative) 01/18/19 18:25 20 mg/dL (Negative) 01/18/19 18:25 Neg (Negative) 01/18/19 18:25 Neg (Negative) 01/18/19 18:25 Neg (Negative) 01/18/19 18:25 < 2.0 mg/dL (<2.0) 01/18/19 18:25 Ur Leukocyte Esterase Neg (Negative) 01/18/19 18:25 3.0 /HPF (0.0-6.0) 01/18/19 18:25 2.0 /HPF (0.0-6.0) 01/18/19 18:25 U Epithel Cells (Auto) < 1.0 /HPF (0-13.0) 01/18/19 18:25 Few /HPF 01/18/19 18:25 Active Medications - Current Medications Current Medications: Generic Name Dose Route Start Last Admin Trade Name Freq PRN Reason Stop Dose Admin Acetaminophen 650 mg 01/18/19 21:24 01/19/19 21:18 Tylenol PO 650 mg Q4H PRN Administration Pain MILD(1-3)/Fever >100.5/BLANCAS Famotidine 20 mg 01/18/19 22:00 01/23/19 09:45 Pepcid IV 20 mg BID CEDRICK Administration Fluconazole 200 mg 01/23/19 10:00 01/23/19 09:44 Diflucan PO 200 mg QDAY CEDRICK Administration Heparin Sodium (Porcine) 5,000 unit 01/20/19 15:00 01/23/19 06:57 Heparin SUB-Q 5,000 unit Q8HR CEDRICK Administration Hydromorphone HCl 0.5 mg 01/18/19 21:24 01/19/19 10:14 Dilaudid IV 0.5 mg Q3H PRN Administration Pain , Severe (7-10) Dextrose/Sodium Chloride 1,000 mls @ 75 mls/hr 01/18/19 22:00 01/23/19 08:57 D5ns IV 75 mls/hr DIRECT CEDRICK Administration Cefepime HCl 2 gm in 100 mls @ 200 mls/hr 01/19/19 22:00 01/22/19 21:40 Maxipime/Ns 2 Gm/100 Ml IV 200 mls/hr Q12HR CEDRICK Administration Protocol Metronidazole 500 mg 01/22/19 14:00 01/23/19 05:01 Flagyl PO 500 mg Q8HR CEDRICK Administration Protocol Ondansetron HCl 4 mg 01/18/19 21:24 01/20/19 08:14 Zofran IV 4 mg Q8H PRN Administration Nausea And Vomiting Sodium Chloride 10 ml 01/18/19 22:00 01/23/19 09:49 Sodium Chloride Flush Syringe 10 Ml IV 10 ml BID CEDRICK Administration Sodium Chloride 10 ml 01/18/19 21:24 Sodium Chloride Flush Syringe 10 Ml IV PRN PRN LINE FLUSH
[2019-01-23] MEDS: MAXIPIME/NS 2 GM/100 ML 2 GM/100 ML BAG IV SCH ×2 (12:59→21:10)
[2019-01-23] MEDS ORDERED: NORCO 5/325 PO PRN (13:32)
--- NOTE | 2019-01-23 13:32 | Progress Note ---
Assessment and Plan 1) Pelvic abscess in male Current Visit: Yes Status: Acute Plan to address problem: Pt stable. Pt with post appendicitis fluid collection in pelvis s/p IR drainage of 20cc of pus 1. cultures pending 2. c/w abx per ID 3. soft diet 4. dc fluids 5. oral pain control 6. patient is cleared for dc from surgical standpoint once he is transitioned to oral abx per ID. I have advised him to take full course of outpatient abx once discharged and follow up with Dr. Jon for post op follow up. D/W Dr. Quinn. Please call with questions. Subjective Date of service: 01/23/19 Narrative: Pt seen and examined. States he feels well. No f/c. Abdominal pain is much improved. He has had a BM and is tolerating a soft diet. s/p IR drainage of pelvic abscess yesterday Objective Vital Signs - 12hr 01/23/19 01/23/19 01/23/19 06:50 09:26 11:48 Temperature 98.0 F 97.9 F Pulse Rate 75 82 Respiratory 20 20 Rate Blood Pressure 102/66 105/69 O2 Sat by Pulse 98 100 97 Oximetry - General physical appearance Narrative Exam: Gen: AAOx3. NAD CV: s1, S2+ resp: even and unlabored Abd: soft, NT, ND. R gluteal dressing c/d/i Ext: no c/c/e - Labs 01/22/19 05:57 01/22/19 05:57
[2019-01-23] MEDS: PEPCID PO SCH (21:11)
[2019-01-24] MEDS: FLAGYL PO SCH ×3 (06:40→21:49)
[2019-01-24] MEDS: HEPARIN SUB-Q SCH ×3 (06:41→21:49)
--- NOTE | 2019-01-24 10:08 | Progress Note ---
Assessment and Plan Cultures: 01/18/2019 blood cultures no growth 01/18/2019 urine: no growth 01/22/2019 surgical culture: GNR x 2 Assessment: 49 y/o male with history of recent ruptured appendicitis s/p lap appendectomy on 01/01/2019 admitted on 01/18/2019 due to 24h-history of worsening abdominal pain associated with nausea: 1) Sepsis: Resolved: likely due to post ruptured appendicitis pelvic abscess. UA negative. Urine culture no growth. Blood cultures no growth. 2) Post ruptured appendicitis pelvic abscess: His appendix was found enlarged, thickened with necrotic distal portion. Purulent fluid in the abdomen. He was given an augmentin prescription but did not fill it out.CT Abdomen/Pelvis shows 5.5x6.7x5.3 cm rim-enhancing fluid collection in the central pelvis, partial SBO, wall thickening distal sigmoid and rectum. Repeat CT 01/21 shows stable abscess in the pelvis. Fluid collection persists. s/p CT guided transgluteal aspiration of the pelvic fluid collection 01/22/19. Surgical cultures in progress Recommendations: - follow-up surgical cultures -Continue Cefepime 2 gms IV every 12 hours, D6 -Continue Fluconazole 200mg PO every 24 hours, D5 -Continue Flagyl 500 mg PO every 8 hours, D5 - Anticipate discharge on Augmentin 875 PO BID to complete 10 days ending 01-29-19 -Discussed with patient the importance of taking all antibiotics prescribed [facility] M: [id number] O:[phone] Subjective Date of service: 01/24/19 Principal diagnosis: patient with pelvic fluid collection Interval history: Patient seen and examined. No generalized pain or weakness reported. No SOB. no fevers. Objective - Exam Narrative Exam: General appearance: Awake. Alert. no acute distress Eyes: anicteric sclerae, moist conjunctivae; no lid-lag; PERRLA HENT: Atraumatic; oropharynx clear Neck: Trachea midline; supple, no thyromegaly or lymphadenopathy Lungs: CTA awa CV: RRR no murmur Abdomen: Soft, no tenderness, R gluteal dressing c/d/i Extremities: no edema, cyanosis Skin: Normal temperature, turgor and texture; no rash, ulcers or subcutaneous nodules Psych: Appropriate affect, alert and oriented to person, place and time. Neuro: alert and oriented x 3. Moving all extremities - Constitutional Vitals: Vital Signs Temp Pulse Resp BP Pulse Ox 97.8 F 78 18 116/63 98 01/24/19 05:56 01/24/19 05:56 01/24/19 05:56 01/24/19 05:56 01/24/19 08:37 Temperature -Last 24 Hours Temperature 97.8 F Temperature 98.1 F Temperature 98.4 F Temperature 97.9 F - Labs CBC & Chem 7: 01/22/19 05:57 01/22/19 05:57
[2019-01-24] MEDS: DIFLUCAN PO SCH (10:33)
[2019-01-24] MEDS: PEPCID PO SCH ×2 (10:33→21:49)
[2019-01-24] MEDS: MAXIPIME/NS 2 GM/100 ML 2 GM/100 ML BAG IV SCH (10:34)
[2019-01-24] MEDS: SODIUM CHLORIDE FLUSH SYRINGE 10 ML IV SCH (10:34)
--- NOTE | 2019-01-24 11:52 | Progress Note ---
Assessment and Plan Assessment and plan: Sepsis: Resolved: likely due to post ruptured appendicitis pelvic abscess. UA negative. Urine culture no growth. Blood cultures no growth. Post ruptured appendicitis pelvic abscess: His appendix was found enlarged, thickened with necrotic distal portion. Purulent fluid in the abdomen. CT Abdomen/Pelvis shows 5.5x6.7x5.3 cm rim-enhancing fluid collection in the central pelvis, partial SBO, wall thickening distal sigmoid and rectum. Repeat CT 01/21 shows stable abscess in the pelvis. Fluid collection persists. s/p CT guided transgluteal aspiration of the pelvic fluid collection 01/22/19. Surgical cultures are pending. Continue Cefepime 2 gms IV every 12 hours, Fluconazole 200mg PO every 24 hours, Flagyl 500 mg PO every 8 hours Medical noncompliance. Patient has been counseled. Disposition. Anticipate discharge in a.m. History Interval history: No new issues overnight. Hospitalist Physical - Constitutional Vitals: Temp Pulse Resp BP Pulse Ox 97.8 F 78 18 116/63 98 01/24/19 05:56 01/24/19 05:56 01/24/19 05:56 01/24/19 05:56 01/24/19 08:37 General appearance: Present: no acute distress, obese - EENT Eyes: Present: PERRL, EOM intact ENT: hearing intact, clear oral mucosa, dentition normal - Neck Neck: Present: supple, normal ROM - Respiratory Respiratory effort: normal Respiratory: bilateral: CTA - Cardiovascular Rhythm: regular Heart Sounds: Present: S1 & S2. Absent: gallop, rub - Extremities Extremities: no ischemia, No edema, Full ROM - Abdominal General gastrointestinal: soft, non-tender, non-distended, normal bowel sounds - Integumentary Integumentary: Present: clear, warm, dry - Neurologic Neurologic: CNII-XII intact, moves all extremities Results - Labs CBC & Chem 7: 01/22/19 05:57 01/22/19 05:57 Labs: Laboratory Last Values WBC 5.9 K/mm3 (4.5-11.0) 01/22/19 05:57 RBC 4.76 M/mm3 (3.65-5.03) 01/22/19 05:57 Hgb 13.5 gm/dl (11.8-15.2) 01/22/19 05:57 Hct 40.1 % (35.5-45.6) 01/22/19 05:57 MCV 84 fl (84-94) 01/22/19 05:57 MCH 28 pg (28-32) 01/22/19 05:57 MCHC 34 % (32-34) 01/22/19 05:57 RDW 13.3 % (13.2-15.2) 01/22/19 05:57 Plt Count 297 K/mm3 (140-440) 01/22/19 05:57 Lymph % (Auto) 13.5 % (13.4-35.0) 01/19/19 08:15 [place] % (Auto) 10.0 % (0.0-7.3) H 01/19/19 08:15 Eos % (Auto) 0.4 % (0.0-4.3) 01/19/19 08:15 Baso % (Auto) 0.6 % (0.0-1.8) 01/19/19 08:15 Lymph # 1.5 K/mm3 (1.2-5.4) 01/19/19 08:15 [place] # 1.1 K/mm3 (0.0-0.8) H 01/19/19 08:15 Eos # 0.0 K/mm3 (0.0-0.4) 01/19/19 08:15 Baso # 0.1 K/mm3 (0.0-0.1) 01/19/19 08:15 Seg Neutrophils % 75.5 % (40.0-70.0) H 01/19/19 08:15 Seg Neutrophils # 8.6 K/mm3 (1.8-7.7) H 01/19/19 08:15 Sodium 144 mmol/L (137-145) 01/22/19 05:57 Potassium 4.1 mmol/L (3.6-5.0) 01/22/19 05:57 Chloride 107.3 mmol/L (98-107) H 01/22/19 05:57 Carbon Dioxide 25 mmol/L (22-30) 01/22/19 05:57 16 mmol/L 01/22/19 05:57 BUN 7 mg/dL (9-20) L 01/22/19 05:57 1.0 mg/dL (0.8-1.5) 01/22/19 05:57 Estimated GFR > 60 ml/min 01/22/19 05:57 7 % 01/22/19 05:57 Glucose 103 mg/dL (75-100) H 01/22/19 05:57 5.9 % (4-6) 01/18/19 14:05 Calcium 8.5 mg/dL (8.4-10.2) 01/22/19 05:57 0.70 mg/dL (0.1-1.2) 01/19/19 08:15 AST 17 units/L (5-40) 01/19/19 08:15 ALT 28 units/L (7-56) 01/19/19 08:15 108 units/L (35-129) 01/19/19 08:15 6.6 g/dL (6.3-8.2) 01/19/19 08:15 3.2 g/dL (3.9-5) L 01/19/19 08:15 0.9 % 01/19/19 08:15 22 units/L (13-60) 01/18/19 14:05 Yellow (Yellow) 01/18/19 18:25 Clear (Clear) 01/18/19 18:25 5.0 (5.0-7.0) 01/18/19 18:25 <15 mg/dl mg/dL (Negative) 01/18/19 18:25 Neg mg/dL (Negative) 01/18/19 18:25 20 mg/dL (Negative) 01/18/19 18:25 Neg (Negative) 01/18/19 18:25 Neg (Negative) 01/18/19 18:25 Neg (Negative) 01/18/19 18:25 < 2.0 mg/dL (<2.0) 01/18/19 18:25 Ur Leukocyte Esterase Neg (Negative) 01/18/19 18:25 3.0 /HPF (0.0-6.0) 01/18/19 18:25 2.0 /HPF (0.0-6.0) 01/18/19 18:25 U Epithel Cells (Auto) < 1.0 /HPF (0-13.0) 01/18/19 18:25 Few /HPF 01/18/19 18:25 Active Medications - Current Medications Current Medications: Generic Name Dose Route Start Last Admin Trade Name Freq PRN Reason Stop Dose Admin Acetaminophen 650 mg 01/18/19 21:24 01/19/19 21:18 Tylenol PO 650 mg Q4H PRN Administration Pain MILD(1-3)/Fever >100.5/BLANCAS Acetaminophen/Hydrocodone Bitart 1 each 01/23/19 13:32 [place] 5/325 PO Q6H PRN Pain, Moderate (4-6) Famotidine 20 mg 01/23/19 22:00 01/24/19 10:33 Pepcid PO 20 mg BID CEDRICK Administration Fluconazole 200 mg 01/23/19 10:00 01/24/19 10:33 Diflucan PO 200 mg QDAY CEDRICK Administration Heparin Sodium (Porcine) 5,000 unit 01/20/19 15:00 01/24/19 06:41 Heparin SUB-Q 5,000 unit Q8HR CEDRICK Administration Cefepime HCl 2 gm in 100 mls @ 200 mls/hr 01/19/19 22:00 01/24/19 10:34 Maxipime/Ns 2 Gm/100 Ml IV 200 mls/hr Q12HR CEDRICK Administration Protocol Metronidazole 500 mg 01/22/19 14:00 01/24/19 06:40 Flagyl PO 500 mg Q8HR CEDRICK Administration Protocol Ondansetron HCl 4 mg 01/18/19 21:24 01/20/19 08:14 Zofran IV 4 mg Q8H PRN Administration Nausea And Vomiting Sodium Chloride 10 ml 01/18/19 22:00 01/24/19 10:34 Sodium Chloride Flush Syringe 10 Ml IV 10 ml BID CEDRICK Administration Sodium Chloride 10 ml 01/18/19 21:24 Sodium Chloride Flush Syringe 10 Ml IV PRN PRN LINE FLUSH
[2019-01-25] MEDS: HEPARIN SUB-Q SCH (06:37)
[2019-01-25] MEDS: MAXIPIME/NS 2 GM/100 ML 2 GM/100 ML BAG IV SCH (06:38)
[2019-01-25] MEDS: FLAGYL PO SCH (06:38)
[2019-01-25] MEDS: SODIUM CHLORIDE FLUSH SYRINGE 10 ML IV SCH ×2 (08:07→10:24)
--- NOTE | 2019-01-25 08:59 | Progress Note ---
Assessment and Plan Cultures: 01/18/2019 blood cultures no growth 01/18/2019 urine: no growth 01/22/2019 surgical culture: E.coli, resistant to ampicillin Assessment: 49 y/o male with history of recent ruptured appendicitis s/p lap appendectomy on 01/01/2019 admitted on 01/18/2019 due to 24h-history of worsening abdominal pain associated with nausea: 1) Sepsis: Resolved: likely due to post ruptured appendicitis pelvic abscess. UA negative. Urine culture no growth. Blood cultures no growth. 2) Post ruptured appendicitis pelvic abscess: His appendix was found enlarged, thickened with necrotic distal portion. Purulent fluid in the abdomen. He was given an augmentin prescription but did not fill it out.CT Abdomen/Pelvis shows 5.5x6.7x5.3 cm rim-enhancing fluid collection in the central pelvis, partial SBO, wall thickening distal sigmoid and rectum. Repeat CT 01/21 shows stable abscess in the pelvis. Fluid collection persists. s/p CT guided transgluteal aspiration of the pelvic fluid collection 01/22/19. Surgical cultures E. coli, resistant to ampicillin Recommendations: - follow-up surgical cultures for ID and LEXI's -Continue Cefepime 2 gms IV every 12 hours, D7 -Continue Fluconazole 200mg PO every 24 hours, D6 -Continue Flagyl 500 mg PO every 8 hours, D6 - Anticipate discharge on Levaquin 750 q day for total 10 days ending 01-29-19 -Discussed with patient the importance of taking all antibiotics prescribed [facility] M: [id number] O:[phone] Subjective Date of service: 01/25/19 Principal diagnosis: patient with pelvic fluid collection Interval history: Patient seen and examined. No generalized pain or weakness reported. No SOB. no fevers. Objective - Exam Narrative Exam: General appearance: Awake. Alert. no acute distress Eyes: anicteric sclerae, moist conjunctivae; no lid-lag; PERRLA HENT: Atraumatic; oropharynx clear Neck: Trachea midline; supple, no thyromegaly or lymphadenopathy Lungs: CTA awa CV: RRR no murmur Abdomen: Soft, no tenderness, R gluteal dressing c/d/i Extremities: no edema, cyanosis Skin: Normal temperature, turgor and texture; no rash, ulcers or subcutaneous nodules Psych: Appropriate affect, alert and oriented to person, place and time. Neuro: alert and oriented x 3. Moving all extremities - Constitutional Vitals: Vital Signs Temp Pulse Resp BP Pulse Ox 97.4 F L 77 20 98/57 97 01/25/19 05:50 01/25/19 05:50 01/25/19 05:50 01/25/19 05:50 01/25/19 05:50 Temperature -Last 24 Hours Temperature 97.4 F Temperature 98.0 F Temperature 98.0 F Temperature 97.9 F - Labs CBC & Chem 7: 01/22/19 05:57 01/22/19 05:57
--- NOTE | 2019-01-25 10:06 | Discharge Summary ---
Providers - Providers Date of Admission: 01/18/19 17:53 Date of discharge: 01/25/19 Attending physician: GERMAN FRAGOSO 01/18/19 17:55 Consult to Physician [CONS] Stat Comment: Dr Jon notified Consulting Provider: CHELA JON Physician Instructions: Reason For Exam: abd pain 01/18/19 17:56 Consult to Physician [CONS] Stat Comment: Consulting Provider: GORAN VILLAREAL Physician Instructions: Reason For Exam: abd abscess 01/19/19 12:56 Consult to Physician [CONS] Routine Comment: Consulting Provider: JUAN SALAZAR Physician Instructions: Reason For Exam: Pelvic abscess post lap appendectomy Primary care physician: [facility], Hospitalization Reason for admission: sepsis Condition: Stable Hospital course: 49 y/o male with history of recent ruptured appendicitis s/p lap appendectomy on 01/01/2019 admitted on 01/18/2019 due to 24h-history of worsening abdominal pain associated with nausea. His appendix was found enlarged, thickened with necrotic distal portion. Purulent fluid in the abdomen. He was given an augmentin prescription but did not fill it out. In the ED, temp 99.8-100.1, HR 116, R 14, BP 118/78, O2 sat 100%. WBC 13.2. Creat 1. UA negative. Blood cultures 01/18/[address] Abdomen/Pelvis showed 5.5x6.7x5.3 cm rim-enhancing fluid collection in the central pelvis, partial SBO, wall thickening distal sigmoid and rectum. The patient was seen by ID in consultation and treated with IV antibiotics. Repeat CT 01/21 showed stable abscess in the pelvis. Fluid collection persisted. Therefore, patient underwent CT guided transgluteal aspiration of the pelvic fluid collection on 01/22/19. Surgical cultures are pending but did reveal gram-negative rods. ID and sensitivities will be followed up as an outpatient with ID. ID recommends discharge with Augmentin for 10 days. Dedicated discharge time 35 minutes. Disposition: -01 TO HOME OR SELFCARE Time spent for discharge: 35 - Discharge Diagnoses (1) Sepsis Status: Acute (2) Abdominal pain Status: Acute (3) Appendix abscess Status: Acute (4) Pelvic abscess in male Status: Acute Core Measure Documentation - Palliative Care Palliative Care/ Comfort Measures: Not Applicable - Core Measures Any of the following diagnoses?: none Exam - Constitutional Vitals: Temp Pulse Resp BP Pulse Ox 97.4 F L 77 20 98/57 97 01/25/19 05:50 01/25/19 05:50 01/25/19 05:50 01/25/19 05:50 01/25/19 09:16 General appearance: Present: no acute distress, well-nourished - EENT Eyes: Present: PERRL ENT: hearing intact, clear oral mucosa - Neck Neck: Present: supple, normal ROM - Respiratory Respiratory effort: normal Respiratory: bilateral: CTA - Cardiovascular Heart Sounds: Present: S1 & S2. Absent: rub, click - Extremities Extremities: pulses symmetrical, No edema Peripheral Pulses: within normal limits - Abdominal General gastrointestinal: Present: soft, non-tender, non-distended, normal bowel sounds Male genitourinary: Present: normal - Integumentary Integumentary: Present: clear, warm, dry - Musculoskeletal Musculoskeletal: gait normal, strength equal bilaterally - Psychiatric Psychiatric: appropriate mood/affect, intact judgment & insight - Neurologic Neurologic: CNII-XII intact, moves all extremities Plan Activity: advance as tolerated Weight Bearing Status: Weight Bear as Tolerated Diet: regular Follow up with: LISA NIEVES MD [Primary Care Provider] - 3-5 Days JUAN SALAZAR MD [Staff Physician] - 7 Days Prescriptions: Amoxicillin/K Clav Tab [Augmentin 875MG TAB] 1 tab PO Q12HR #20 tab HYDROcodone/APAP 5-325 [[place] 5-325 mg TAB] 1 each PO Q6H PRN #8 tablet PRN Reason: Pain, Moderate (4-6)
[2019-01-25] MEDS: DIFLUCAN PO SCH (10:24)
[2019-01-25] MEDS: PEPCID PO SCH (10:24)
[2019-01-25 12:32] VITALS: BP 108/75
== END 2019-01-25 12:13 | disposition home or self-care (01) | DRG 862 ==
LOC: ED 13:40 → 3A 17:53 → UNDOADMIN 18:06 → 3A 19:06
PROVIDERS: ADMIT Internal Medicine; ATTEND Hospitalist
PROC: 0J9C3ZZ Drainage of Pelvic Region Subcutaneous Tissue and Fascia, Percutaneous Approach (ICD-10-PCS; principal; 2019-01-22)
DX: T81.43XA Infection following a procedure, organ and space surgical site, initial encounter (principal); A41.9 Sepsis, unspecified organism; K35.891 Other acute appendicitis without perforation, with gangrene; K56.600 Partial intestinal obstruction, unspecified as to cause; Y83.8 Other surgical procedures as the cause of abnormal reaction of the patient, or of later complication, without mention of misadventure at the time of the procedure; Z90.49 Acquired absence of other specified parts of digestive tract; Z82.49 Family history of ischemic heart disease and other diseases of the circulatory system; Y92.098 Other place in other non-institutional residence as the place of occurrence of the external cause; Z91.19 Patient's noncompliance with other medical treatment and regimen
CPT/HCPCS: 10160; 36415; 74176; 74177; 77012; 80048; 80053; 81001; 83036; 83690; 85025; 85027; 87040; 87076; 87086; 87116; 87186; 96361; 96374; 96375; G0378; C1769; J0692; J1170; J1450; J1644; J2250; J2270; J2405; J2543; J3010; J7030; J7042; Q9967